=== PATIENT | female | born 1980 | race Hispanic/Latino ===

== ENCOUNTER 2018-02-07 05:40 | Emergency (ER) | payer MEDICAID ==
[2018-02-07] MEDS ORDERED: SODIUM CHLORIDE 0.9% 1000ML 1,000 ML IV ONE (06:01)
[2018-02-07] MEDS ORDERED: ONDANSETRON HCL 4 MG/2 ML VIAL ONE (06:14)
== END 2018-02-07 07:22 | disposition home or self-care (01) ==
LOC: EDH 05:40
DX: K52.9 Noninfective gastroenteritis and colitis, unspecified (principal); E11.9 Type 2 diabetes mellitus without complications; Z98.51 Tubal ligation status
CPT/HCPCS: 82948; 96361; 96374; 99284; J2405; J7030

== ENCOUNTER → 2018-06-12 | Outpatient (CLI) | payer MEDICAID | END | disposition home or self-care (01) | LOC: OIH 15:40 | PROVIDERS: ATTEND Family Medicine | DX: Z01.818 Encounter for other preprocedural examination (principal); E11.9 Type 2 diabetes mellitus without complications | CPT/HCPCS: 71046 ==

== ENCOUNTER 2019-01-16 01:01 | Emergency (ER) | payer MEDICAID ==
[2019-01-16] MEDS ORDERED: METOCLOPRAMIDE 10 MG/2 ML VIAL ONE (01:41)
[2019-01-16] MEDS ORDERED: DiphenhydrAMINE HCL 50 MG/ML VIAL ONE (01:41)
[2019-01-16] MEDS ORDERED: SODIUM CHLORIDE 0.9% 1000ML 1,000 ML IV ONE ×2 (01:42→03:20)
[2019-01-16 01:45] LABS: BASOPHILS % (AUTO) 0.6 % (0.0-5.0); EOSINOPHILS % (AUTO) 0.3 % (0.0-8.0); HEMATOCRIT 41.3 % (36-48); LYMPHOCYTES % (AUTO) 14.4 % (21.0-51.0); MEAN CORPUSCULAR HEMOGLOBIN 25.4 pg (27.0-33.0); MEAN CORPUSCULAR HGB CONC 32.7 g/dL (32.0-36.0); MEAN CORPUSCULAR VOLUME 77.5 fL (79-99); MONOCYTES % (AUTO) 3.4 % (3.0-13.0); NEUTROPHILS % (AUTO) 81.3 % (40.0-77.0); PLATELET COUNT (AUTO) 313 K/uL (130-400); RED BLOOD CELL COUNT(AUTO) 5.33 MIL/uL (4.00-5.50); RED CELL DISTRIBUTION WIDTH 17.8 % (11.0-15.5); WHITE BLOOD COUNT (AUTO) 17.7 K/uL (4.8-10.8)
[2019-01-16 01:52] LABS: CREATININE 0.8 mg/dL (0.5-1.5); POTASSIUM 4.5 mmol/L (3.5-5.1)
[2019-01-16 01:57] LABS: ALBUMIN 3.7 g/dL (3.5-5.0); BILIRUBIN,TOTAL 0.1 mg/dL (0.2-1.0)
[2019-01-16] MEDS ORDERED: FAMOTIDINE/PF 20 MG/2 ML VIAL IV ONE (02:11)
[2019-01-16] MEDS ORDERED: ONDANSETRON HCL 4 MG/2 ML VIAL ONE (02:11)
[2019-01-16] MEDS ORDERED: KETOROLAC TROMETHAMINE 15MG/ML ONE (03:19)
== END 2019-01-16 05:16 | disposition home or self-care (01) ==
LOC: EDH 01:01
DX: K29.00 Acute gastritis without bleeding (principal); E86.9 Volume depletion, unspecified; E11.9 Type 2 diabetes mellitus without complications; I10 Essential (primary) hypertension; Z98.51 Tubal ligation status; Z90.710 Acquired absence of both cervix and uterus
CPT/HCPCS: 36415; 74177; 80053; 83690; 85025; 96361; 96374; 96375; 99285; J1200; J1885; J2405; J2765; J3490; J7030 ×2

== ENCOUNTER 2019-08-05 16:54 | Emergency (ER) | payer MEDICAID ==
[2019-08-05] MEDS ORDERED: IBUPROFEN 600 MG TABLET ONE (17:33)
== END 2019-08-05 18:26 | disposition home or self-care (01) ==
LOC: EDH 16:54
DX: S46.811A Strain of other muscles, fascia and tendons at shoulder and upper arm level, right arm, initial encounter (principal); M77.9 Enthesopathy, unspecified; I10 Essential (primary) hypertension; E11.9 Type 2 diabetes mellitus without complications; Z79.899 Other long term (current) drug therapy; X58.XXXA Exposure to other specified factors, initial encounter; Y93.89 Activity, other specified; Y92.89 Other specified places as the place of occurrence of the external cause; Y99.8 Other external cause status
CPT/HCPCS: 73030; 81025

== ENCOUNTER 2019-09-06 19:28 | Emergency (ER) | payer MEDICAID ==
[2019-09-06] MEDS ORDERED: ONDANSETRON HCL 4 MG/2 ML VIAL ONE (20:03)
[2019-09-06] MEDS ORDERED: MORPHINE SULFATE 4 MG/1ML SYG ONE (20:03)
[2019-09-06] MEDS ORDERED: SODIUM CHLORIDE 0.9% 1000ML 1,000 ML IV ONE (20:04)
[2019-09-06 20:07] LABS: APPEARANCE,URINE Clear (CLEAR); BILIRUBIN,URINE Negative (NEGATIVE); COLOR,URINE Yellow (YELLOW); GLUCOSE, URINE (UA) >=1000 mg/dL (NEGATIVE); KETONES,URINE 15 mg/dL (NEGATIVE); LEUKOCYTE ESTERASE ,URINE Negative (NEGATIVE); NITRATE,URINE Negative (NEGATIVE); OCCULT BLOOD,URINE Negative (NEGATIVE); PROTEIN,URINE Trace mg/dL (NEGATIVE); UROBILINOGEN,URINE 0.2 mg/dL (0.2-1.0)
[2019-09-06 20:07] LABS: BASOPHILS % (AUTO) 0.5 % (0.0-5.0); EOSINOPHILS % (AUTO) 0.3 % (0.0-8.0); HEMATOCRIT 42.6 % (36-48); LYMPHOCYTES % (AUTO) 30.9 % (21.0-51.0); MEAN CORPUSCULAR HEMOGLOBIN 28.5 pg (27.0-33.0); MEAN CORPUSCULAR VOLUME 83.7 fL (79-99); MONOCYTES % (AUTO) 5.7 % (3.0-13.0); NEUTROPHILS % (AUTO) 62.1 % (40.0-77.0); PLATELET COUNT (AUTO) 259 K/uL (130-400); RED BLOOD CELL COUNT(AUTO) 5.09 MIL/uL (4.00-5.50); RED CELL DISTRIBUTION WIDTH 13.4 % (11.0-15.5); WHITE BLOOD COUNT (AUTO) 11.5 K/uL (4.8-10.8)
[2019-09-06 20:18] LABS: CREATININE 0.7 mg/dL (0.5-1.5); POTASSIUM 3.3 mmol/L (3.5-5.1)
[2019-09-06 20:23] LABS: ALBUMIN 3.4 g/dL (3.5-5.0); BILIRUBIN,TOTAL 0.4 mg/dL (0.2-1.0); TOTAL PROTEIN, SERUM 7.9 g/dL (6.0-8.3)
[2019-09-06 20:25] LABS: BACTERIA,URINE None Seen /HPF (None Seen); RBC,URINE None Seen /HPF (0-1); SQUAMOUS EPITHELIAL CELL,UR None Seen /HPF (0-2); WBC,URINE 0-1 /HPF (0-1)
[2019-09-06] MEDS ORDERED: IOHEXOL-350 75 ML VIAL IV ONE (20:59)
[2019-09-06] MEDS ORDERED: KETOROLAC TROMETHAMINE 30MG/ML ONE (22:48)
== END 2019-09-07 01:24 | disposition home or self-care (01) ==
LOC: EDH 19:28
DX: N83.299 Other ovarian cyst, unspecified side (principal); E11.9 Type 2 diabetes mellitus without complications; I10 Essential (primary) hypertension; Z90.710 Acquired absence of both cervix and uterus
CPT/HCPCS: 36415; 74177; 76856; 80053; 81001; 85025; 96374; 96375; 99285; J1885; J2270; J2405; J7030; Q9967

== ENCOUNTER 2019-09-09 13:33 | Emergency (ER) | payer MEDICAID ==
[2019-09-09] MEDS ORDERED: IBUPROFEN 200 MG TAB ONE (14:00)
[2019-09-09] MEDS ORDERED: TETANUS/DIPHTHERIA TOXOID [ADULT] 0.5 ML VIAL IM ONE (14:00)
[2019-09-09] MEDS ORDERED: IBUPROFEN 400 MG TABLET ONE (14:00)
== END 2019-09-09 15:22 | disposition home or self-care (01) ==
LOC: EDH 13:33
DX: S91.351A Open bite, right foot, initial encounter (principal); E11.9 Type 2 diabetes mellitus without complications; I10 Essential (primary) hypertension; Z90.710 Acquired absence of both cervix and uterus; W54.0XXA Bitten by dog, initial encounter; Y93.89 Activity, other specified; Y92.096 Garden or yard of other non-institutional residence as the place of occurrence of the external cause; Y99.8 Other external cause status
CPT/HCPCS: 73630; 90471; 90714

== ENCOUNTER → 2019-09-14 | Outpatient (CLI) | payer MEDICAID | END | disposition home or self-care (01) | LOC: RAH 11:31 | PROVIDERS: ATTEND Family Medicine | DX: E04.1 Nontoxic single thyroid nodule (principal) | CPT/HCPCS: 76536 ==

== ENCOUNTER 2020-04-08 22:02 | Emergency (ER) | payer MEDICAID ==
[2020-04-08] MEDS ORDERED: SODIUM CHLORIDE 0.9% 500ML 500 ML IV ONE (22:03)
[2020-04-08] MEDS ORDERED: KETOROLAC TROMETHAMINE 30MG/ML ONE (22:41)
[2020-04-08 22:58] LABS: BASOPHILS % (AUTO) 0.4 % (0.0-5.0); EOSINOPHILS % (AUTO) 0.5 % (0.0-8.0); HEMATOCRIT 44.6 % (36-48); LYMPHOCYTES % (AUTO) 27.6 % (21.0-51.0); MEAN CORPUSCULAR HEMOGLOBIN 28.4 pg (27.0-33.0); MEAN CORPUSCULAR HGB CONC 33.2 g/dL (32.0-36.0); MEAN CORPUSCULAR VOLUME 85.4 fL (79-99); MONOCYTES % (AUTO) 5.5 % (3.0-13.0); NEUTROPHILS % (AUTO) 65.5 % (40.0-77.0); PLATELET COUNT (AUTO) 268 K/uL (130-400); RED BLOOD CELL COUNT(AUTO) 5.22 MIL/uL (4.00-5.50); WHITE BLOOD COUNT (AUTO) 12.3 K/uL (4.8-10.8)
[2020-04-08 23:01] LABS: APPEARANCE,URINE Clear (CLEAR); BILIRUBIN,URINE Negative (NEGATIVE); COLOR,URINE Yellow (YELLOW); GLUCOSE, URINE (UA) >=1000 mg/dL (NEGATIVE); KETONES,URINE Negative (NEGATIVE); LEUKOCYTE ESTERASE ,URINE Negative (NEGATIVE); NITRATE,URINE Negative (NEGATIVE); OCCULT BLOOD,URINE Negative (NEGATIVE); PROTEIN,URINE Negative (NEGATIVE)
[2020-04-08 23:08] LABS: CREATININE 0.8 mg/dL (0.5-1.5); POTASSIUM 3.3 mmol/L (3.5-5.1)
[2020-04-08 23:13] LABS: ALBUMIN 3.4 g/dL (3.5-5.0); BILIRUBIN,TOTAL 0.4 mg/dL (0.2-1.0); TOTAL PROTEIN, SERUM 7.6 g/dL (6.0-8.3)
[2020-04-08 23:17] LABS: BACTERIA,URINE None Seen /HPF (None Seen); RBC,URINE 0-1 /HPF (0-1); SQUAMOUS EPITHELIAL CELL,UR Few /HPF (0-2); WBC,URINE None Seen /HPF (0-1); YEAST,URINE BUDDING None Seen /HPF (None Seen)
[2020-04-08] MEDS ORDERED: POTASSIUM CHLORIDE 20 MEQ ERTAB PO ONE (23:52)
[2020-04-09] MEDS ORDERED: HYDROCODONE/ACETAMINOPHEN 5/325 MG TAB ONE (01:10)
== END 2020-04-09 02:19 | disposition home or self-care (01) ==
LOC: EDH 22:02
DX: N83.291 Other ovarian cyst, right side (principal); N83.292 Other ovarian cyst, left side; I10 Essential (primary) hypertension; E11.9 Type 2 diabetes mellitus without complications; Z90.710 Acquired absence of both cervix and uterus
CPT/HCPCS: 36415; 76830; 80053; 81001; 85025; 96361; 96374; 99284; J1885; J7040

== ENCOUNTER 2020-06-23 21:19 | Emergency (ER) | payer MEDICAID | END 2020-06-23 23:02 | disposition home or self-care (01) | LOC: EDH 21:19 | DX: S90.31XA Contusion of right foot, initial encounter (principal); E11.9 Type 2 diabetes mellitus without complications; I10 Essential (primary) hypertension; Z90.710 Acquired absence of both cervix and uterus; X50.9XXA Other and unspecified overexertion or strenuous movements or postures, initial encounter; Y93.89 Activity, other specified; Y92.89 Other specified places as the place of occurrence of the external cause; Y99.8 Other external cause status | CPT/HCPCS: 73630 ==

== ENCOUNTER 2021-01-06 08:30 | Emergency (ER) | payer MEDICAID | END 2021-01-06 10:16 | disposition home or self-care (01) | LOC: EDH 08:30 | DX: S60.221A Contusion of right hand, initial encounter (principal); E11.9 Type 2 diabetes mellitus without complications; I10 Essential (primary) hypertension; Z90.710 Acquired absence of both cervix and uterus; W22.8XXA Striking against or struck by other objects, initial encounter; Y93.89 Activity, other specified; Y92.89 Other specified places as the place of occurrence of the external cause; Y99.8 Other external cause status | CPT/HCPCS: 73110; 73130 ==

== ENCOUNTER 2024-03-19 15:23 | Emergency (ER) | payer MEDICAID ==
[~2024-03-19] VITALS: Ht 149.9 cm; Wt 75.7 kg
[2024-03-19] MEDS: ONDANSETRON 4MG INJ IVP ONE (15:58)
[2024-03-19] MEDS: acetaMINOPHEN 500 MG TABLET PO ONE (15:58)
[2024-03-19 16:00] LABS: BASOPHILS # (AUTO) 0.03 K/uL (0.00-0.20); BASOPHILS % (AUTO) 0.3 % (0.0-5.0); EOSINOPHILS # (AUTO) 0.05 K/uL (0.00-0.70); EOSINOPHILS % (AUTO) 0.6 % (0.0-8.0); HEMATOCRIT 44.1 % (36-48); IMMATURE GRANULOCYTE ABSOLUTE 0.05 K/uL (0-1); LYMPHOCYTES # (AUTO) 2.4 K/uL (1.0-4.8); LYMPHOCYTES % (AUTO) 26.8 % (21.0-51.0); MEAN CORPUSCULAR HEMOGLOBIN 30.1 pg (27.0-33.0); MEAN CORPUSCULAR HGB CONC 34.9 g/dL (32.0-36.0); MEAN CORPUSCULAR VOLUME 86.3 fL (79-99); MONOCYTES # (AUTO) 0.5 K/uL (0.1-1.0); MONOCYTES % (AUTO) 5.1 % (3.0-13.0); NEUTROPHILS # (AUTO) 6.1 K/uL (1.8-7.7); NEUTROPHILS % (AUTO) 66.6 % (40.0-77.0); PLATELET COUNT (AUTO) 273 K/uL (130-400); RED BLOOD CELL COUNT(AUTO) 5.11 MIL/uL (4.00-5.50); RED CELL DISTRIBUTION WIDTH 13.2 % (11.0-15.5); WHITE BLOOD COUNT (AUTO) 9.1 K/uL (4.8-10.8)
[2024-03-19 16:13] LABS: CREATININE 0.8 mg/dL (0.5-1.0); POTASSIUM 3.7 mmol/L (3.5-5.1)
[2024-03-19 16:18] LABS: ALBUMIN 3.6 g/dL (3.5-5.0); BILIRUBIN,TOTAL 0.3 mg/dL (0.2-1.0); TOTAL PROTEIN, SERUM 7.2 g/dL (6.0-8.3)
[2024-03-19 16:21] LABS: INR 0.95 (0.85-1.15); PROTHROMBIN TIME 10.3 SEC (9.6-11.6)
[2024-03-19 16:23] LABS: PARTIAL THROMBOPLASTIN TIME 25.9 SEC (26.3-35.5)
[2024-03-19 16:39] LABS: ADD UA MICROSCOPIC YES; APPEARANCE,URINE CLEAR (CLEAR); BILIRUBIN,URINE NEGATIVE (NEGATIVE); COLOR,URINE YELLOW (YELLOW); GLUCOSE, URINE (UA) >=1000 mg/dL (NEGATIVE); KETONES,URINE NEGATIVE (NEGATIVE); LEUKOCYTE ESTERASE ,URINE NEGATIVE Leu/uL (NEGATIVE); NITRATE,URINE NEGATIVE (NEGATIVE); OCCULT BLOOD,URINE NEGATIVE (NEGATIVE); PROTEIN,URINE NEGATIVE (NEGATIVE); RBC,URINE 0-1 /HPF (0-1); SQUAMOUS EPITHELIAL CELL,UR FEW /HPF (0-2); UROBILINOGEN,URINE 0.2 mg/dL (0.2-1.0); WBC,URINE 0-1 /HPF (0-1)
[2024-03-19] MEDS: 0.9%NACL 1000ML 1,000 ML IV ONE (17:27)
[2024-03-19] MEDS: KETOROLAC 30MG VIAL (30MG/ML) IVP ONE (17:28)
[2024-03-19] MEDS: mecliZINE HCL 25 MG TABLET PO ONE (17:28)
[2024-03-19] MEDS: Solu-medROL 125MG VIAL IVP ONE (17:28)
[2024-03-19] MEDS ORDERED: ONDA-243 PO (18:52)
[2024-03-19] MEDS ORDERED: MECL-302 PO (18:52)
[2024-03-19 19:36] VITALS: BP 130/78; PULSE 67; RESP 15; O2SAT 99
== END 2024-03-19 19:38 | disposition home or self-care (01) ==
LOC: EDH 15:23
DX: R42 Dizziness and giddiness (principal); F07.81 Postconcussional syndrome; E11.65 Type 2 diabetes mellitus with hyperglycemia; I10 Essential (primary) hypertension; Z79.899 Other long term (current) drug therapy; Z90.710 Acquired absence of both cervix and uterus
CPT/HCPCS: 99285; 96374; 70450; 96375; 96361; 80053; 85025; 85610; 85730; 81001; 36415; J7030; J2919; J2405; J1885

== ENCOUNTER 2024-08-05 21:11 | Observation (INO) | payer MEDICAID ==
[~2024-08-05] VITALS: Ht 149.9 cm; Wt 73.1 kg
[~2024-08-05 21:11] MED LIST: ATOR40TA71 PO; DAPA5TAB PO; INSU100V37 SQ; INSU3INS5 SQ; ISOS30TA92 PO; MECL-302 PO; NITR0.4T50 SL; ONDA-243 PO; PANT40TA PO; RANO500T2 PO
--- NOTE | 2024-08-05 21:31 | HMCIMG ---
CHEST 1VW REASON: CHEST PAIN COMPARISON: None. FINDINGS: Single view of the chest was obtained. Lungs are clear. Heart size is normal. There is no pulmonary vascular congestion. Mediastinum and bony thorax appear unremarkable. IMPRESSION: 1. Normal single view chest x-ray.
[2024-08-05 21:38] LABS: BASOPHILS # (AUTO) 0.03 K/uL (0.00-0.20); BASOPHILS % (AUTO) 0.4 % (0.0-5.0); EOSINOPHILS # (AUTO) 0.06 K/uL (0.00-0.70); EOSINOPHILS % (AUTO) 0.7 % (0.0-8.0); HEMATOCRIT 40.5 % (36-48); IMMATURE GRANULOCYTE ABSOLUTE 0.02 K/uL (0-1); LYMPHOCYTES # (AUTO) 3.1 K/uL (1.0-4.8); LYMPHOCYTES % (AUTO) 35.8 % (21.0-51.0); MEAN CORPUSCULAR HGB CONC 32.8 g/dL (32.0-36.0); MEAN CORPUSCULAR VOLUME 82.2 fL (79-99); MONOCYTES # (AUTO) 0.7 K/uL (0.1-1.0); MONOCYTES % (AUTO) 8.5 % (3.0-13.0); NEUTROPHILS # (AUTO) 4.6 K/uL (1.8-7.7); NEUTROPHILS % (AUTO) 54.4 % (40.0-77.0); PLATELET COUNT (AUTO) 274 K/uL (130-400); RED BLOOD CELL COUNT(AUTO) 4.93 MIL/uL (4.00-5.50); RED CELL DISTRIBUTION WIDTH 14.1 % (11.0-15.5); WHITE BLOOD COUNT (AUTO) 8.5 K/uL (4.8-10.8)
[2024-08-05 21:47] LABS: CREATININE 0.9 mg/dL (0.5-1.0); POTASSIUM 3.7 mmol/L (3.5-5.1)
[2024-08-05 21:49] LABS: INR <= 0.93 (0.85-1.15); PROTHROMBIN TIME 9.8 SEC (9.6-11.6)
[2024-08-05 21:50] LABS: PARTIAL THROMBOPLASTIN TIME 24.7 SEC (26.3-35.5)
[2024-08-05 21:58] LABS: B-TYPE NATRIURETIC PEPTIDE 11 pg/mL (0-100)
--- NOTE | 2024-08-05 21:58 | ERN ---
General Chief Complaint: Chest Pain Stated Complaint: CHEST PAIN Time Seen by MD: 21:19 History of Present Illness Initial Comments Mrs Arambula is a 43-year-old female with significant past medical history of CAD who comes in with a chief complaint of chest pain. Patient has recently received a catheterization where she states that she has 60% blockage of 1 coronary artery. Patient was not which artery this is. Patient was on a statin, isosorbide mononitrate, Farxiga and diabetes medicine. Patient reports the chest pain has been left-sided radiating down her left and right arm. Patient does have an elevated blood pressure. Patient was reports t hat she did take a nitro which did bring her chest pain slightly below an 8. She denies any other symptomatology Allergies: Coded Allergies: No Known Drug Allergies (Verified Allergy, 05/20/13) Home Meds Active Scripts Nitroglycerin (Nitroglycerin) 0.4 Mg Tab.subl, 0.4 MG SL AD PRN for CHEST PAIN, #30 TAB.SL 1 Refill Prov:AMBER SIMMONS 07/19/24 Ranolazine (RANEXA) 500 Mg Tab.er.12h, 500 MG PO BID, #60 TAB Prov:AMBER SIMMONS 07/19/24 Meclizine HCl (Meclizine HCl) 25 Mg Tablet, 25 MG PO TID for vertigo, #30 TAB 0 Refills Prov:BELL EPSTEIN NP 03/19/24 Ondansetron (Ondansetron Odt) 4 Mg Tab.rapdis, 4 MG PO Q6HPRN PRN for nausea, #16 TAB 0 Refills Prov:BELL EPSTEIN NP 03/19/24 Reported Medications Atorvastatin Calcium (Atorvastatin Calcium) 40 Mg Tablet, 1 TAB PO HS for 30 Days, #30 TAB 0 Refills 07/16/24 Pantoprazole Sodium (Protonix) 40 Mg Tablet.dr, 1 TAB PO DAILY for 30 Days, #30 TAB 0 Refills 07/16/24 Isosorbide Mononitrate (Isosorbide Mononitrate ER) 30 Mg Tab.er.24h, 1 TAB PO DAILY for 30 Days, #30 TAB 0 Refills 07/16/24 Dapagliflozin Propanediol (Farxiga) 5 Mg Tablet, 1 TAB PO DAILY for 30 Days, #30 TAB 0 Refills 07/16/24 Insulin Degludec (Tresiba) 100 Unit/Ml Vial, 30 UNITS SQ DAILY, VIAL 07/16/24 Insuln Asp Prt/Insulin Aspart (Novolog Mix 70-30 Flexpen Syrn) 100 Unit/Ml (70- 30) Insuln.pen, 45 UNITS SQ BID, SYRINGE 07/16/24 Past Medical History Past Medical History: Diabetes-Type I, Diabetes-Type II, Hypertension, Other Medical History Other: 60 % OF UNKNOWN ARTERY OCCLUSION Past Surgical History: Hysterectomy Family History Family History: Negative Social History Social History: Negative Female( History) History: Not Applicable ROS Dictation Constitutional: Negative for fever,chills, and weight loss Eyes: Negative for injury, pain,redness, and discharge ENT: Negative for injury,pain or swelling Cardiovascular: Positive for chest pain Respiratory: Negative for shortness of breath, cough, and wheezing, Abdomen/GI: Negative for abdominal pain, nausea, vomiting, diarrhea, and constipation Back: Negative for injury and pain : Negative for injury, bleeding and discharge MS/Extremity: Negative for injury and deformity Skin: Negative for rash, and discoloration Neuro: Negative for headache, weakness, numbness, tingling, and seizure Psych: Negative for suicide ideation, homicidal ideation, and hallucinations Physical Exam Physical Exam Dictation General: Patient who appears to be mildly in distress Head/Face: Normocephalic, atraumatic Eyes: PERRL, EOMI, vision at baseline ENT: oral cavity clear, Neck: Trachea midline, Cardiovascular: RRR, normal S1/S2, No MRGs, no JVD Respiratory: CTAB, no respiratory distress, No rales or wheezes Abdomen: Soft, non-tender, non-distended Skin: Warm, dry, normal turgor, no rash MS/Extremity: Pulses equal, no cyanosis Neuro: COAx4, GCS 15, strength 5/5 Results Laboratory and Microbiology Lab and Micro Result Laboratory Tests Test 08/05/24 21:30 08/05/24 21:54 White Blood Count 8.5 K/uL (4.8-10.8) Red Blood Count 4.93 MIL/uL (4.00-5.50) Hemoglobin 13.3 g/dL (12.0-16.0) Hematocrit 40.5 % (36-48) Mean Corpuscular Volume 82.2 fL (79-99) Mean Corpuscular Hemoglobin 27.0 pg (27.0-33.0) Mean Corpuscular Hemoglobin Concent 32.8 g/dL (32.0-36.0) Red Cell Distribution Width 14.1 % (11.0-15.5) Platelet Count 274 K/uL (130-400) Mean Platelet Volume 10.1 fL (7.5-10.5) Immature Granulocyte % (Auto) 0.2 % (0-1) Neutrophils (%) (Auto) 54.4 % (40.0-77.0) Lymphocytes (%) (Auto) 35.8 % (21.0-51.0) Monocytes (%) (Auto) 8.5 % (3.0-13.0) Eosinophils (%) (Auto) 0.7 % (0.0-8.0) Basophils (%) (Auto) 0.4 % (0.0-5.0) Neutrophils # (Auto) 4.6 K/uL (1.8-7.7) Lymphocytes # (Auto) 3.1 K/uL (1.0-4.8) Monocytes # (Auto) 0.7 K/uL (0.1-1.0) Eosinophils # (Auto) 0.06 K/uL (0.00-0.70) Basophils # (Auto) 0.03 K/uL (0.00-0.20) Absolute Immature Granulocyte (auto 0.02 K/uL (0-1) Nucleated Red Blood Cells 0.0 % (0.0-0.19) Prothrombin Time 9.8 SEC (9.6-11.6) Prothromb Time International Ratio <= 0.93 (0.85-1.15) Activated Partial Thromboplast Time 24.7 SEC (26.3-35.5) L Sodium Level 142 mmol/L (136-145) Potassium Level 3.7 mmol/L (3.5-5.1) Chloride Level 107 mmol/L (101-111) Carbon Dioxide Level 27 mmol/L (21-32) Blood Urea Nitrogen 12 mg/dL (7-18) Creatinine 0.9 mg/dL (0.5-1.0) Glomerular Filtration Rate Calc 81 mL/min (>90) Random Glucose 137 mg/dL (70-105) H Total Calcium 8.8 mg/dL (8.5-10.1) Magnesium Level 2.00 mg/dL (1.80-2.40) Total Creatine Kinase 77 U/L (21-232) # Troponin I High Sensitivity < 4 ng/L (4-50) L B-Type Natriuretic Peptide 11 pg/mL (0-100) Troponin I < 0.05 ng/mL (0.00-0.05) MDM Patient will be admitted for chest pain. MDM: Differential diagnosis: Chest pain Rationale: Tests considered and ordered secondary to shared decision making include: labs, ECG and radiology Previous outside records reviewed: Old ER visits. Risk of complication and/or morbidity or mortality of patient management: None Medications-Per medication reconciliation Need for hospitalization: Patient does meet criteria for hospitalization. Need for emergency major/minor surgery: No There are no social concerns with this patient. Prescription drug management Prescriptions will include symptomatic care Patient's prior external medical records from other ER visits were reviewed by me as indicated. Prior testing and results from previous visits were reviewed. Prior tests were taken into account with medical decision making and resource utilization, independent historian/historians were used to obtain complete medical history. I independently interpreted the test that were performed, results were reviewed by me and considered findings on radiology if ordered. Medical management and examination interpretation discussions were had by al wi other qualified healthcare professionals as indicated for the patient's care. ED Course Orders Procedure Category Date Status Time Vital Signs Per CPOE 08/05/24 Transmitted Routine 21:12 B-Type Natriuretic LAB 08/05/24 Complete Peptide 21:12 Chest 1vw RAD 08/05/24 Resulted 21:12 12 Lead Ekg Tracing- EKG 08/05/24 Logged Technical 21:12 Oxygen By Nc/Pulse Ox CPOE 08/05/24 Transmitted 21:12 Maintain Iv CPOE 08/05/24 Transmitted 21:12 Iv Insertion CPOE 08/05/24 Transmitted 21:12 Cardiac Monitoring CPOE 08/05/24 Transmitted 21:12 Pulse Oximetry With CPOE 08/05/24 Transmitted Vs And Prn 21:12 Cbc With Differential LAB 08/05/24 Complete 21:12 Activity: Br W/Brp CPOE 08/05/24 Transmitted With Assist 21:12 Creatine Kinase, Total LAB 08/05/24 Complete 21:12 Urinalysis Profile LAB 08/05/24 Logged 21:12 Troponin Poc Order LAB 08/05/24 Complete Only 21:12 Bedside Troponin-I LAB.ER 08/05/24 In Process (Poc) 21:12 Basic Metabolic Panel LAB 08/05/24 Complete 21:12 Troponin I High LAB 08/05/24 Complete Sensitivity 21:13 Pt And Ptt LAB 08/05/24 Complete 21:13 Magnesium LAB 08/05/24 Complete 21:13 Morphine 4mg Syg PHA 08/05/24 Complete (Morphine 4mg Syg) 21:30 Current Medications Medications (Trade) Dose Ordered Sig/[place] Route PRN Reason Start Time Stop Time Status Last Admin Dose Admin Morphine Sulfate (morPHINE 4MG SYG) 4 mg ONCE ONCE IVP 08/05/24 21:30 08/05/24 21:31 DC 08/05/24 22:06 Vital Signs Date Time Temp Pulse Resp B/P (MAP) Pulse Ox O2 Delivery O2 Flow Rate FiO2 08/05/24 22:07 98.4 96 20 146/89 98 Room Air* 0 21 08/05/24 21:31 98.4 94 20 174/110 98 Room Air* 0 21 08/05/24 21:12 99.0 97 16 134/78 98 Room Air DX & DISP Disposition: Inpatient Departure Impression: Primary Impression: Coronary artery disease Condition: Stable Referrals: JAYME GOMES MD (PCP) ASHWINI ELIZABETH MD Aug 05, 2024 21:58
[2024-08-05] MEDS: morPHINE 4 MG SYG IVP ONE (22:06)
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
[2024-08-05] MEDS ORDERED: cloNIDine HCL 0.1 MG TABLET PO PRN (23:30)
[2024-08-05] MEDS ORDERED: PoTASSium chloRIDE 20MEQ ER 20 MEQ ERTAB PO PRN (23:30)
[2024-08-05] MEDS ORDERED: LAbetaLOL 20MG SYG IV PRN (23:30)
[2024-08-05] MEDS ORDERED: PoTASSium chl 10% ELIXIR 20MEQ 20 MEQ/15 ML UDCUP PO PRN (23:30)
[2024-08-05] MEDS ORDERED: MAGNESIUM 2GM PREMIX 50ML 50 ML IV PRN (23:30)
[2024-08-05] MEDS ORDERED: PoTASSium chloRIDE 10MEQ/100ML 100 ML IV PRN (23:30)
[2024-08-05] MEDS ORDERED: GLUCAGON 1MG KIT 1 MG ML IM PRN (23:30)
[2024-08-05] MEDS ORDERED: hydrALAZine 20MG/ML VIAL IV PRN (23:30)
[2024-08-05] MEDS ORDERED: IpraTROPium/alBUTERol SULFATE 3 ML SOLUTION IH PRN (23:30)
[2024-08-05] MEDS ORDERED: DEXTROSE 50%-WATER 50 ML DISP.SYRIN IV PRN (23:30)
[2024-08-06] VITALS (10 sets, daily range): BP systolic 125–148; BP diastolic 51–94; PULSE 71–92; RESP 16–18; TEMP 98–98.6; O2SAT 98–99
[2024-08-06 00:22] LABS: APPEARANCE,URINE CLEAR (CLEAR); BILIRUBIN,URINE NEGATIVE (NEGATIVE); COLOR,URINE LIGHT-YELLOW (YELLOW); GLUCOSE, URINE (UA) >=1000 mg/dL (NEGATIVE); KETONES,URINE NEGATIVE (NEGATIVE); LEUKOCYTE ESTERASE ,URINE NEGATIVE Leu/uL (NEGATIVE); NITRATE,URINE NEGATIVE (NEGATIVE); OCCULT BLOOD,URINE SMALL (NEGATIVE); PROTEIN,URINE NEGATIVE (NEGATIVE); UROBILINOGEN,URINE 0.2 mg/dL (0.2-1.0)
[2024-08-06 00:24] LABS: ADD UA MICROSCOPIC YES
[2024-08-06 00:27] LABS: SQUAMOUS EPITHELIAL CELL,UR MOD /HPF (0-2); WBC,URINE 0-1 /HPF (0-1)
[2024-08-06 00:28] LABS: AMPHET/METH SCREEN,URINE NEGATIVE (NEGATIVE); BARBITURATE SCREEN, URINE NEGATIVE (NEGATIVE); BENZODIAZEPINES SCREEN,URINE NEGATIVE (NEGATIVE); CANNABINOID SCREEN,URINE NEGATIVE (NEGATIVE); COCAINE SCREEN,URINE NEGATIVE (NEGATIVE); OPIATE SCREEN,URINE POSITIVE (NEGATIVE); PHENCYCLIDINE SCREEN,URINE NEGATIVE (NEGATIVE)
[2024-08-06] MEDS ORDERED: NITROGLYCERIN 30 GM TUBE TD ONE (01:00)
[2024-08-06] MEDS ORDERED: PHARMACY COMMUNICATION MISC STA (01:23)
[2024-08-06] MEDS ORDERED: COMPOUND PO MISCELLANEOUS 1 EACH MISC MISC PRN (01:30)
[2024-08-06] MEDS: NITROGLYCERIN 1GM OINT 1 INCH/1GM TD ONE (01:35)
[2024-08-06] MEDS: ASPIRIN 81MG CHEW TAB PO ONE (01:36)
[2024-08-06] MEDS: atorVAStatin 40 MG TABLET PO SCH (01:36)
--- NOTE | 2024-08-06 01:38 | NUR ---
PATIENT WILL HAVE HER HOME MEDS LISANDRA IN THE AM
[2024-08-06] MEDS ORDERED: IOHEXOL 350 MG/ML 100ML INFUS..BTL IV ONE (01:40)
--- NOTE | 2024-08-06 02:02 | HMCIMG ---
CT CHEST PE PROTOCOL WWO CONT HISTORY: Pulmonary embolism COMPARISON: 07/16/2024 TECHNIQUE: CT angiography of the chest was performed. The study was performed using angiographic technique with maximum intensity projection reconstruction images. Patient was given 100 cc of Omnipaque through intravenous route. FINDINGS: No CT evidence of filling defect is seen to suggest pulmonary embolus. No CT evidence of aortic dissection is seen. No evidence of parenchymal disease is seen. No CT evidence of pleural effusion or pericardial effusion is seen. The heart is enlarged. Coronary arterial calcifications are seen. No evidence of adrenal mass is seen. Degenerative changes of the spine are noted. Liver is enlarged with fatty changes measuring 16 cm. IMPRESSION: 1. No CT evidence of acute pulmonary embolus is seen. CT was performed with one or more following dose reduction techniques: automated exposure control, adjustment of the mA and kv according to patient's size, or use of a iterative reconstruction technique.
[2024-08-06] MEDS: LIDO 2% VISC 30ML+MAG/AL/SIMETH 30ML+DICYCLOMINE 20MG 10ML PO ONE (02:29)
[2024-08-06] MEDS: morPHINE 2 MG SYG IVP PRN (02:32)
[2024-08-06] MEDS ORDERED: DILT-36 PO (02:40)
[2024-08-06] MEDS ORDERED: ASPI-1197 PO (02:44)
[2024-08-06 05:00] LABS: BASOPHILS # (AUTO) 0.04 K/uL (0.00-0.20); BASOPHILS % (AUTO) 0.5 % (0.0-5.0); EOSINOPHILS # (AUTO) 0.09 K/uL (0.00-0.70); EOSINOPHILS % (AUTO) 1.1 % (0.0-8.0); IMMATURE GRANULOCYTE ABSOLUTE 0.03 K/uL (0-1); LYMPHOCYTES # (AUTO) 3.6 K/uL (1.0-4.8); LYMPHOCYTES % (AUTO) 42.8 % (21.0-51.0); MEAN CORPUSCULAR HEMOGLOBIN 26.7 pg (27.0-33.0); MEAN CORPUSCULAR HGB CONC 32.2 g/dL (32.0-36.0); MEAN CORPUSCULAR VOLUME 83.1 fL (79-99); MONOCYTES # (AUTO) 0.5 K/uL (0.1-1.0); MONOCYTES % (AUTO) 6.4 % (3.0-13.0); NEUTROPHILS # (AUTO) 4.1 K/uL (1.8-7.7); NEUTROPHILS % (AUTO) 48.8 % (40.0-77.0); PLATELET COUNT (AUTO) 276 K/uL (130-400); RED BLOOD CELL COUNT(AUTO) 4.45 MIL/uL (4.00-5.50); RED CELL DISTRIBUTION WIDTH 14.2 % (11.0-15.5); WHITE BLOOD COUNT (AUTO) 8.4 K/uL (4.8-10.8)
[2024-08-06 05:20] LABS: CARBON DIOXIDE 29 mmol/L (21-32); CHLORIDE 106 mmol/L (101-111); CREATINE KINASE, TOTAL 59 U/L (21-232); CREATININE 0.8 mg/dL (0.5-1.0); GLOMERULAR FILTR. RATE CALC 94 mL/min (>90); GLUCOSE,RANDOM 128 mg/dL (70-105); PHOSPHORUS 3.4 mg/dL (2.5-4.9); SODIUM SERUM 143 mmol/L (136-145); UREA NITROGEN, BLOOD 11 mg/dL (7-18)
[2024-08-06] MEDS: INSULIN humuLIN R 100 UNIT/ML 3ML SQ SCH (06:41)
[2024-08-06] MEDS: ondanSETRON 4MG INJ IVP PRN (07:20)
--- NOTE | 2024-08-06 07:31 | EKG ---
[facility] Test Date: 2024-08-05 Test Time: 21:13:18 Pat Name: ALLEN JIANG Department: [facility] Room: 313 1 Gender: F Hall Cleaner: [id number] : 1980 Requested By: ASHWINI ELIZABETH Order Number: [id number] Reading MD: Gold Garcia Measurements Intervals [place] Rate: 96 P: 19 TN: 113 QRS: 30 QRSD: 79 T: 18 QT: 375 QTc: 473 Interpretive Statements Sinus rhythm Anterior and inferior t wave inversions Electronically Signed On 08-06-2024 23:39:42 EXAMINING CHAIR ASSEMBLER by Gold Garcia Please click the below link to view image of tracing.
--- NOTE | 2024-08-06 07:31 | EKG ---
[facility] Test Date: 2024-08-06 Test Time: 04:09:56 Pat Name: ALLEN JIANG Department: [facility] Room: 313 1 Gender: F Classifier Operator: [id number] [phone] [id number] Requested By: BENJI QUINTANA Order Number: [id number] Reading MD: Gold Garcia Measurements Intervals [place] Rate: 79 P: 10 WA: 132 QRS: 35 QRSD: 68 T: 23 QT: 410 QTc: 470 Interpretive Statements Normal sinus rhythm inferior and anterior st and t wave changes Electronically Signed On 08-06-2024 23:40:30 STRICKLER ATTENDANT by Gold Garcia Please click the below link to view image of tracing.
[2024-08-06] MEDS ORDERED: PoTASSium chloRIDE 10MEQ SR 10 MEQ/TAB TAB.SR.24H PO PRN (08:30)
[2024-08-06] MEDS: PANTOPrazole 40 MG TAB DR PO SCH (08:37)
[2024-08-06 10:41] LABS: CREATINE KINASE, TOTAL 58 U/L (21-232)
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
[2024-08-06 15:23] LABS: ABG BASE EXCESS -0.9 mmol/L (-2.0-3.0); ABG OXYGEN SATURATION 95.6 % (94.0-98.0); ABG PCO2 36 mmHg (32-45); ABG PH 7.423 (7.350-7.450); DEVICE COMMENT NORAH RN RR; PO2, ARTERIAL BG 76.3 mmHg (83.0-108.0); VENT MODE, BG RA (ROOM AIR)
--- NOTE | 2024-08-06 23:44 | CONS ---
CONSULT NOTE: CARDIOLOGY Reason for consult: Chest Pain HPI/story at presentation: 43-year-old female with a past medical history significant for diabetes, hypertension, CAD with recent cardiac catheterization on 07/09/2024 the patient presented to the emergency department due to experiencing chest pain. Patient reports she was relaxing at home and was experiencing intermittent squeezing to the left-sided her chest. Duration of possibly 1-2 minutes. Patient also reports she was checking her blood pressure during each episode and blood pressure seemed to increase. Patient was recently discharged from [facility] and was found to have 60% long moderate lesion of the LAD. Patient was discharged on aspirin 81, high intensity statin, isosorbide mono 30 daily, pantoprazole 40 daily. Repots she has been compliant with medications. Past medical history: See below Allergies, Meds See chart Review of Systems Constitutional: Negative for chills and fever. HENT: Negative for ear discharge and ear pain. Eyes: Negative for photophobia and discharge. Respiratory: Negative for cough, sputum production and stridor. Cardiovascular: + chest pain, - palpitations. Gastrointestinal: Negative for diarrhea and vomiting. Genitourinary: Negative for frequency. Musculoskeletal: Negative for myalgias. Skin: Negative for rash. Neurological: Negative for focal weakness and seizures. Endo/Heme/Allergies: Negative for polydipsia. Psychiatric/Behavioral: Negative for hallucinations. Vitals see chart PHYSICAL EXAMINATION GENERAL: The patient is alert and oriented*3 HEENT: Nonicteric sclerae, non traumatic HEART: Regular rate and rhythm with no murmurs LUNGS: Clear to auscultation bilaterally ABDOMEN: No acute issues, non tender GENITAL, RECTAL: deferred SKIN: No rash NEUROLOGIC: NFND EXTREMITIES: No edema ASSESSMENT CHEST PAIN Intermittent squeezing to left chest area 1-2 minutes in duration Normal EF on echocardiogram, 06/2024 Abnormal CTA with evidence of severe disease of the LAD, 06/2024 Long moderate lesion of the LAD 60% PALPITATIONS Reports history of palpitations/tachycardia Currently on oral metoprolol DIABETES, HYPERTENSION, OBESITY, SLEEP APNEA CORE MEASURES Pending OTHER MEDICAL PROBLEMS reviwed PLAN 08/06/2024 No active cardiac complaints, chest pain is improved compared to yesterday, possible significant acid reflux as patient had taken nitroglycerin and then went to bed and woke up with worsening pain. Possible lax distal esophageal sphincter as potential etiology. Consider GI cocktail. No cardiac testing planned at this time given extensive workup recently. ATTESTATION I was involved substantially in the care of this patient Number and complexity of problems addressed 2 or more stable chronic illnesses Amount and or complexity of data Review of prior external note(s) from each unique source - Number 1 Ordering of each unique test - Number 0 Review of the result(s) of each unique test - Number 2 Assessment requiring an independent historian(s) No Independent interpretation of test performed by another MD/QHCP/appropriate source (not separately reported) No Discussion of management or test interpretation with external MD/QHCP/appropriate source (not separately reported) No Risk status (cardiac, billing related) Moderate ESTEFANY MILLAN MD Aug 06, 2024 23:44
[2024-08-07 03:45] VITALS: BP 129/86; PULSE 68; RESP 17; TEMP 98.3
[2024-08-07 07:58] VITALS: BP 128/82; PULSE 84; RESP 16; TEMP 98.7
[2024-08-07 08:00] VITALS: O2SAT 93
[2024-08-07 08:30] VITALS: PULSE 73; RESP 18; O2SAT 98
[2024-08-07] MEDS: dilTIAZem 120MG SR CAP PO SCH (08:42)
[2024-08-07] MEDS: ASPIRIN 81MG CHEW TAB PO SCH (08:42)
[2024-08-07] MEDS: ISOSORBIDE MONO 30MG SR TAB PO SCH (08:43)
[2024-08-07] MEDS: acetaMINOPHEN 325 MG TAB PO PRN (08:43)
[2024-08-07] MEDS: DAPAGLIFLOZIN PROPANEDIOL PO SCH (08:44)
[2024-08-07] MEDS: LIDOCAINE 4% ADH..PATCH TP SCH (11:44)
[2024-08-07 12:12] VITALS: BP 110/63; PULSE 77; RESP 16; TEMP 98.8
[2024-08-07] MEDS: LACTULOSE 20 GM/30 ML UDCUP PO PRN (12:51)
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
[2024-08-07 16:35] VITALS: BP 135/55; PULSE 74; RESP 19; TEMP 98.3
--- NOTE | 2024-08-07 17:30 | NUR ---
PATIENT DISCHARGED HOME ID BAND,IV AND TELE WILLY REMOVED. DISCHARGE INSTRUCTIONS EXPLAINED AND GIVEN TO PATIENT. PATIENT VERBALIZED UNDERSTANDING. BELONGINGS PACKED AND TAKEN BY PATIENT. WHEELED DOWN TO PRIVATE CAR.
== END 2024-08-07 17:30 | disposition home or self-care (01) ==
LOC: EDH 21:11 → EDHIP 21:12 → 3CH 08-06 01:54
PROVIDERS: ADMIT Internal Medicine Critical Care Medicine; ATTEND Internal Medicine Critical Care Medicine
DX: R07.89 Other chest pain (principal); I10 Essential (primary) hypertension; I25.10 Atherosclerotic heart disease of native coronary artery without angina pectoris; E11.9 Type 2 diabetes mellitus without complications; E78.5 Hyperlipidemia, unspecified; G47.30 Sleep apnea, unspecified; E66.9 Obesity, unspecified; Z90.710 Acquired absence of both cervix and uterus; Z79.4 Long term (current) use of insulin; Z91.410 Personal history of adult physical and sexual abuse; Z79.899 Other long term (current) drug therapy; Z68.32 Body mass index [BMI] 32.0-32.9, adult
CPT/HCPCS: 96374; 99285; 82550 ×3; 83735 ×3; 84484 ×5; 80048 ×2; 83880; 85025 ×2; 85378; 85610; 85730; 36415 ×3; 71045; 93005 ×2; 96376 ×2; 96372 ×2; 96375; 84100; 82803; 80305; 82948 ×7; 81001; 71270; 36600; G0378 ×42; J2270 ×6; J2405 ×2; Q9967

== ENCOUNTER 2024-09-20 10:27 | Emergency (ER) | payer MEDICAID ==
[~2024-09-20] VITALS: Ht 149.9 cm; Wt 74.8 kg
[~2024-09-20 10:27] MED LIST changes: +ASPI-1197 PO; +DILT-36 PO; -MECL-302 PO; -ONDA-243 PO; -RANO500T2 PO
[2024-09-20 10:39] VITALS: TEMP 97.9
--- NOTE | 2024-09-20 10:41 | ERN ---
ED Note History of Present Illness Stated Complaint: ABDOMINAL PAIN ON RIGHT SIDE Chief Complaint: Abdominal Pain Time Seen by MD: 10:32 Dictation: PATIENT IS A 43-YEAR-OLD FEMALE WITH A COMPLAINT OF RIGHT LOWER QUADRANT PAIN TENDERNESS AND CRAMPING ONSET TWO DAYS PRIOR TO ARRIVAL. SHE DENIES FEVER CHILLS NAUSEA VOMITING NO CHANGE IN URINATION AND NO FLANK PAIN. SHE STATES SHE HAS HAD A HISTORY OF A PRIOR TOTAL HYSTERECTOMY with bilateral oophorectomy Allergies: Coded Allergies: No Known Drug Allergies (Verified Allergy, 05/20/13) Home Meds Active Scripts Nitroglycerin (Nitroglycerin) 0.4 Mg Tab.subl, 0.4 MG SL AD PRN for CHEST PAIN, #30 TAB.SL 1 Refill Prov:AMBER SIMMONS 07/19/24 Reported Medications Aspirin (Aspirin) 81 Mg Tab.chew, 1 TAB PO DAILY 08/06/24 Diltiazem HCl (Diltiazem 24Hr ER) 120 Mg Cap.er.24h, 1 CAP PO DAILY 08/06/24 Atorvastatin Calcium (Atorvastatin Calcium) 40 Mg Tablet, 1 TAB PO HS for 30 Days, #30 TAB 0 Refills 07/16/24 Pantoprazole Sodium (Protonix) 40 Mg Tablet.dr, 1 TAB PO DAILY for 30 Days, #30 TAB 0 Refills 07/16/24 Isosorbide Mononitrate (Isosorbide Mononitrate ER) 30 Mg Tab.er.24h, 1 TAB PO DAILY for 30 Days, #30 TAB 0 Refills 07/16/24 Dapagliflozin Propanediol (Farxiga) 5 Mg Tablet, 2 TAB PO DAILY for 30 Days, #30 TAB 0 Refills 07/16/24 Insulin Degludec (Tresiba) 100 Unit/Ml Vial, 30 UNITS SQ DAILY, VIAL 07/16/24 Insuln Asp Prt/Insulin Aspart (Novolog Mix 70-30 Flexpen Syrn) 100 Unit/Ml (70- 30) Insuln.pen, 45 UNITS SQ BIDMEALS, SYRINGE 07/16/24 Past Medical History Past Medical History: Diabetes-Type I, Diabetes-Type II, Hypertension, Other Additional Past Medical Hx: 60 % OF UNKNOWN ARTERY OCCLUSION Surgical History: Hysterectomy PSYCH History: no pertinent psych hx Family History: Negative Social History: Negative History: Not Applicable RN Note Reviewed/Agreed w/PFSH: Yes Review of System Dictation CONSTITUTIONAL: NEGATIVE EXCEPT FOR HPI HEAD/FACE: NEGATIVE EXCEPT FOR HPI EENT: NEGATIVE EXCEPT FOR HPI RESPIRATORY: NEGATIVE EXCEPT FOR HPI GASTROINTESTINAL/ABDOMINAL: NEGATIVE EXCEPT FOR HPI RIGHT LOWER QUADRANT PAIN GENITOURINARY: NEGATIVE EXCEPT FOR HPI MUSCULOSKELETAL: NEGATIVE EXCEPT FOR HPI INTEGUMENTARY: NEGATIVE EXCEPT FOR HPI NEUROLOGICAL/PSYCH: NEGATIVE EXCEPT FOR HPI HEMATOLOGIC/LYMPHATIC: NEGATIVE EXCEPT FOR HPI ALL SYSTEMS NEGATIVE, EXCEPT NOTED ABOVE. 13 POINT REVIEW OF SYSTEMS ASSESSED AND ALL NEGATIVE EXCEPT FOR ABOVE. Initial Vital Sign VS Vital Signs Date Time Temp Pulse Resp B/P (MAP) Pulse Ox O2 Delivery O2 Flow Rate FiO2 09/20/24 10:39 97.9 85 18 130/82 97 Room Air 09/20/24 12:39 0 21 Physical Exam Dictation VITAL SIGNS REVIEWED GENERAL APPEARANCE: ALERT, ORIENTED X 3, MODERATE ACUTE DISTRESS, WELL DEVELOPED, NOURISHED. HEAD AND FACE: NON-TRAUMATIC. EYES: PERRL, PINK CONJUNCTIVAS, EYELID NO TRAUMA, ANTERIOR CHAMBER WITH ARCUS SENILIS. EARS: PINNAS INTACT AND NO SIGNS OF TRAUMA OR ERYTHEMA EAR CANALS CLEAR AND NO DISCHARGE TM NO ERYTHEMA NOSE: NO DISCHARGE, NO BLEEDING. OROPHARYNX: MOUTH NORMAL, TONGUE PINK, PHARYNX CLEAR,NO ERYTHEMA, TONSILS NO EXUDATES, NO ABSCESSES NOTED, MUCOUS MEMBRANE MOIST NECK: SUPPLE, NON-TENDER, NO THYROMEGALY, NO MASSES, NO JVD, NO BRUITS BREAST:DEFERRED CHEST:NO TENDERNESS, NO CREPITUS, NO PARADOXICAL MOVEMENT, NO RETRACTIONS LUNGS:CLEAR, WELL-VENTILATED, SYMMETRIC, NO RALES, NO WHEEZING, NO RHONCHI, NO STRIDOR, GOOD BREATH SOUNDS BILATERALLY HEART: REGULAR RATE, REGULAR RHYTHM, NO MURMUR, NO GALLOPS VASCULAR: NO PERIPHERAL EDEMA, ABDOMEN: SOFT, POSITIVE BOWEL SOUNDS, NONDISTENDED, NO GUARDING, MODERATE RIGHT LOWER QUADRANT PAIN TENDERNESS WITHOUT REBOUND RECTAL: DEFERRED GENITAL: DEFERRED NEUROLOGICAL: NORMAL SPEECH, MOTOR FUNCTION INTACT, SENSORY FUNCTION INTACT MUSCULOSKELETAL: NECK NONTENDER, FULL RANGE OF MOTION, BACK NONTENDER, FULL RANGE OF MOTION, EXTREMITIES: NONTENDER, FULL RANGE OF MOTION SKIN: COLOR PINK, DRY, NO TURGOR, NO RASH, NO LACERATIONS, NO ABRASIONS, NO CONTUSIONS. LYMPHATIC: DEFERRED Results (Laboratory/Radiology) Laboratory/Radiology Laboratory Tests Test 09/20/24 10:45 09/20/24 10:57 Urine Color LIGHT-YELLOW (YELLOW) Urine Appearance CLOUDY (CLEAR) H Urine pH 5.5 (5.0-8.0) Urine Specific [place] 1.029 (1.001-1.031) Urine Protein NEGATIVE mg/dL (NEGATIVE) Urine Glucose (UA) >=1000 mg/dL (NEGATIVE) H Urine Ketones NEGATIVE mg/dL (NEGATIVE) Urine Occult Blood NEGATIVE (NEGATIVE) Urine Nitrate NEGATIVE (NEGATIVE) Urine Bilirubin NEGATIVE mg/dL (NEGATIVE) Urine Urobilinogen 0.2 mg/dL (0.2-1.0) Urine Leukocyte Esterase NEGATIVE Romi/uL Urine RBC 0-1 /HPF (0-1) Urine WBC 2-5 /HPF (0-1) H Urine Squamous Epithelial Cells MANY /HPF (0-2) Urine Bacteria RARE /HPF (None Seen) White Blood Count 10.6 K/uL (4.8-10.8) Red Blood Count 5.37 MIL/uL (4.00-5.50) Hemoglobin 14.0 g/dL (12.0-16.0) Hematocrit 43.7 % (36-48) Mean Corpuscular Volume 81.4 fL (79-99) Mean Corpuscular Hemoglobin 26.1 pg (27.0-33.0) L Mean Corpuscular Hemoglobin Concent 32.0 g/dL (32.0-36.0) Red Cell Distribution Width 14.8 % (11.0-15.5) Platelet Count 298 K/uL (130-400) Mean Platelet Volume 10.6 fL (7.5-10.5) H Immature Granulocyte % (Auto) 0.5 % (0-1) Neutrophils (%) (Auto) 67.3 % (40.0-77.0) Lymphocytes (%) (Auto) 27.1 % (21.0-51.0) Monocytes (%) (Auto) 4.4 % (3.0-13.0) Eosinophils (%) (Auto) 0.4 % (0.0-8.0) Basophils (%) (Auto) 0.3 % (0.0-5.0) Neutrophils # (Auto) 7.2 K/uL (1.8-7.7) Lymphocytes # (Auto) 2.9 K/uL (1.0-4.8) Monocytes # (Auto) 0.5 K/uL (0.1-1.0) Eosinophils # (Auto) 0.04 K/uL (0.00-0.70) Basophils # (Auto) 0.03 K/uL (0.00-0.20) Absolute Immature Granulocyte (auto 0.05 K/uL (0-1) Nucleated Red Blood Cells 0.0 % (0.0-0.19) Sodium Level 141 mmol/L (136-145) Potassium Level 4.0 mmol/L (3.5-5.1) Chloride Level 105 mmol/L (101-111) Carbon Dioxide Level 29 mmol/L (21-32) Blood Urea Nitrogen 8 mg/dL (7-18) Creatinine 0.6 mg/dL (0.5-1.0) Glomerular Filtration Rate Calc 114 mL/min (>90) Random Glucose 127 mg/dL (70-105) H Total Calcium 9.4 mg/dL (8.5-10.1) Lipase 39 U/L (16-77) PATIENT: ALLEN JIANG MR#: [id number] : 1980 SEX: F AGE: 43 LOCATION: [facility] ORDER 1040 STATUS: REG REPORT#: [id number] SERVICE 1039 REASON: RIGHT LOWER QUADRANT PAIN TWO DAYS. HISTORY OF HYSTERECTOMY ORDERING PHYSICIAN: BELL EPSTEIN NP PROCEDURE: ABD PEL W - CT ABDOMEN/PELVIS W/CONTRAST CT ABDOMEN/PELVIS W/CONTRAST HISTORY: Right lower abdominal pain COMPARISON: 09/06/2019 TECHNIQUE: Multiple sequential axial images of the abdomen and pelvis were obtained from the dome of the diaphragm through symphysis pubis. Patient was not given contrast through intravenous route. Oral contrast was not given. FINDINGS: No pleural effusion is seen bilaterally. There is no evidence of parenchymal disease or pulmonary nodule of the visualized lower lungs. Degenerative changes of the thoracolumbar spine are present. The heart is not enlarged. The liver, spleen, adrenal glands and pancreas are unremarkable. There is no evidence of hydronephrosis bilaterally. No evidence of renal stone is seen. Fecal material is seen in the colon. There are normal size retroperitoneal and mesenteric lymph nodes. No ascites is seen. No CT evidence of acute appendicitis is seen. There is right ovarian cyst measuring 4.2 cm. Post hysterectomy changes are seen. Pelvic sidewalls are symmetric bilaterally. Bladder is well distended without wall thickening. IMPRESSION: 1. Post hysterectomy changes. Right ovarian cyst measuring 4.2 cm. No ascites. Labs Reviewed?: Yes ED Course ED Course Orders Procedure Category Date Status Time Cbc With Differential LAB 09/20/24 Complete 10:39 Urinalysis Profile LAB 09/20/24 Complete 10:39 Ct Abdomen/Pelvis CT 09/20/24 Resulted W/Contrast 10:39 0.9%Nacl 1000ml (Ns PHA 09/20/24 Complete 1000ml) 11:00 Morphine 2mg Syg PHA 09/20/24 Complete (Morphine 2mg Syg) 11:00 Ondansetron 4mg Inj PHA 09/20/24 Complete (Zofran 4mg Inj) 11:00 Lipase LAB 09/20/24 Complete 10:39 Basic Metabolic Panel LAB 09/20/24 Complete 10:39 Iohexol (Omnipaque) PHA 09/20/24 Complete 11:29 Iohexol (Omnipaque) PHA 09/20/24 Complete 11:38 Zosyn 3.375gm+Ns 50ml PHA 09/20/24 Complete (Zosyn 3.375gm+Ns 13:00 Morphine 4mg Syg PHA 09/20/24 Complete (Morphine 4mg Syg) 13:00 Ketorolac PHA 09/20/24 Verified Tromethamine 30mg/Ml 13:30 Current Medications Medications (Trade) Dose Ordered Sig/[place] Route PRN Reason Start Time Stop Time Status Last Admin Dose Admin Iohexol (Omnipaque) 75 ml STK-MED ONCE IV 09/20/24 11:38 09/20/24 11:39 DC Iohexol (Omnipaque) 35,000 mg STK-MED ONCE IV 09/20/24 11:29 09/20/24 11:30 DC Morphine Sulfate (morPHINE 2MG SYG) 2 mg ONCE ONCE IVP 09/20/24 11:00 09/20/24 11:01 DC 09/20/24 11:02 Morphine Sulfate (morPHINE 4MG SYG) 4 mg ONCE ONCE IVP 09/20/24 13:00 09/20/24 13:01 DC 09/20/24 12:46 Ondansetron HCl (zoFRAN 4MG INJ) 4 mg ONCE ONCE IVP 09/20/24 11:00 09/20/24 11:01 DC 09/20/24 11:03 Piperacillin Sod/ Tazobactam Sod (Zosyn 3.375gm+NS 50ml) 3.375 gm ONCE ONCE IVPB 09/20/24 13:00 09/20/24 13:01 DC 09/20/24 12:48 Sodium Chloride 1,000 ml @ 0 mls/hr ONCE ONCE IV 09/20/24 11:00 09/20/24 11:01 DC 09/20/24 11:03 Vital Signs Date Time Temp Pulse Resp B/P (MAP) Pulse Ox O2 Delivery O2 Flow Rate FiO2 09/20/24 12:39 84 16 111/55 99 Room Air* 0 21 09/20/24 10:39 97.9 85 18 130/82 97 Room Air 1325, patient made aware she has a right ovarian cyst and she has not had an oophorectomy. She states she has been having this pain off and on since her hysterectomy and by Dr. Dudley last year however has never follow back up with the him. Medical Decision Making MDM MDM: Differential diagnosis: Appendicitis/diverticulitis/hernia/UTI/pelvic pain. Rationale: Tests considered and ordered secondary to shared decision making include: Labs/CT Previous outside records reviewed: Old ER visits. Risk of complication and/or morbidity or mortality of patient management: None Medications-Per medication reconciliation Need for hospitalization: Patient does not meet criteria for hospitalization. No Need for emergency major/minor surgery: No There are no social concerns with this patient. 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 Prescriptions will include symptomatic care Patient's prior external medical records from other ER visits were reviewed by me as indicated. Prior testing and results from previous visits were reviewed. Prior tests were taken into account with medical decision making and resource utilization, independent historian/historians were used to obtain complete medical history. I independently interpreted the test that were performed, results were reviewed by me and considered findings on radiology if ordered. Medical management and examination interpretation discussions were had by me with other qualified healthcare professionals as indicated for the patient's care. DX & DISP Disposition: Discharge Departure Impression: Primary Impression: Right ovarian cyst Additional Impression: Uncontrolled diabetes mellitus Condition: Stable Scripts Ibuprofen (Ibuprofen 800 mg Tab) 800 Mg Tab 800 MG PO Q8H PRN for fever or pain, #30 TAB 0 Refills Prov: BELL EPSTEIN COMMUNITY RESOURCE CONSULTANT 09/20/24 Additional Instructions: Follow-up with primary care provider in 1 to 2 days. Take medications as directed here in the emergency room. Okay to continue home medications unless otherwise discussed during your visit in the emergency room today. Return to your nearest emergency room if symptoms worsen or if there is no improvement. Call 911 if you need immediate assistance. Take Tylenol or Motrin [id number] as needed and if no contraindications are present. Increase oral hydration. A wound culture or urine culture was ordered here in the emergency room department please follow-up with primary care provider and advise them to get repeat ports from our facility. If you had any Mychal wrap/splints that were applied here, please do not remove them until you see your primary care or specialty. Take ibuprofen as directed for your ovarian cyst, follow up with your guinea pig breeder doctor in the next 1-2 days Referrals: JAYME GOMES MD (PCP) Time of Disposition: 13:27 I have reviewed the case, and I agree with, Diagnosis and Plan BELL EPSTEIN NP Sep 20, 2024 10:41
[2024-09-20] MEDS: morPHINE 2 MG SYG IVP ONE (11:02)
[2024-09-20] MEDS: ondanSETRON 4MG INJ IVP ONE (11:03)
[2024-09-20] MEDS: 0.9%NACL 1000ML 1,000 ML IV ONE (11:03)
[2024-09-20 11:19] LABS: BASOPHILS # (AUTO) 0.03 K/uL (0.00-0.20); BASOPHILS % (AUTO) 0.3 % (0.0-5.0); EOSINOPHILS # (AUTO) 0.04 K/uL (0.00-0.70); EOSINOPHILS % (AUTO) 0.4 % (0.0-8.0); HEMATOCRIT 43.7 % (36-48); IMMATURE GRANULOCYTE ABSOLUTE 0.05 K/uL (0-1); LYMPHOCYTES # (AUTO) 2.9 K/uL (1.0-4.8); LYMPHOCYTES % (AUTO) 27.1 % (21.0-51.0); MEAN CORPUSCULAR HEMOGLOBIN 26.1 pg (27.0-33.0); MEAN CORPUSCULAR VOLUME 81.4 fL (79-99); MONOCYTES # (AUTO) 0.5 K/uL (0.1-1.0); MONOCYTES % (AUTO) 4.4 % (3.0-13.0); NEUTROPHILS # (AUTO) 7.2 K/uL (1.8-7.7); NEUTROPHILS % (AUTO) 67.3 % (40.0-77.0); PLATELET COUNT (AUTO) 298 K/uL (130-400); RED BLOOD CELL COUNT(AUTO) 5.37 MIL/uL (4.00-5.50); RED CELL DISTRIBUTION WIDTH 14.8 % (11.0-15.5); WHITE BLOOD COUNT (AUTO) 10.6 K/uL (4.8-10.8)
[2024-09-20 11:20] LABS: ADD UA MICROSCOPIC YES; APPEARANCE,URINE CLOUDY (CLEAR); BILIRUBIN,URINE NEGATIVE (NEGATIVE); COLOR,URINE LIGHT-YELLOW (YELLOW); GLUCOSE, URINE (UA) >=1000 mg/dL (NEGATIVE); KETONES,URINE NEGATIVE (NEGATIVE); LEUKOCYTE ESTERASE ,URINE NEGATIVE Leu/uL (NEGATIVE); NITRATE,URINE NEGATIVE (NEGATIVE); OCCULT BLOOD,URINE NEGATIVE (NEGATIVE); PH,URINE 5.5 (5.0-8.0); PROTEIN,URINE NEGATIVE (NEGATIVE); UROBILINOGEN,URINE 0.2 mg/dL (0.2-1.0)
[2024-09-20 11:20] LABS: CREATININE 0.6 mg/dL (0.5-1.0)
[2024-09-20 11:28] LABS: BACTERIA,URINE RARE /HPF (None Seen); RBC,URINE 0-1 /HPF (0-1); SQUAMOUS EPITHELIAL CELL,UR MANY /HPF (0-2)
[2024-09-20] MEDS ORDERED: IOHEXOL 350 MG/ML 100ML INFUS..BTL IV ONE (11:29)
[2024-09-20] MEDS ORDERED: IOHEXOL-350 75 ML VIAL IV ONE (11:38)
[2024-09-20 12:39] VITALS: BP 111/55; PULSE 84; RESP 16; O2SAT 99
--- NOTE | 2024-09-20 12:41 | NUR ---
STATES NO CAHNGE IN PAIN AFTER MORPHINE GIVEN, BELL PARIS AT BEDSIDE AND IS AWARE, STATES WILL PLACE NEW ORDER FOR PAIN
[2024-09-20] MEDS: morPHINE 4 MG SYG IVP ONE (12:46)
[2024-09-20] MEDS: ZOSYN 3.375GM +NS 50ML IVPB ONE (12:48)
--- NOTE | 2024-09-20 13:02 | NUR ---
NOTIFIED SUZETTE FROM RADIOLOGY FOR UPDATE ON CT RESULTS PER BELL TEXTILE COATING MACHINE OPERATOR, STATES WILL CALL RADIOLOGIST
--- NOTE | 2024-09-20 13:16 | HMCIMG ---
CT ABDOMEN/PELVIS W/CONTRAST HISTORY: Right lower abdominal pain COMPARISON: 09/06/2019 TECHNIQUE: Multiple sequential axial images of the abdomen and pelvis were obtained from the dome of the diaphragm through symphysis pubis. Patient was not given contrast through intravenous route. Oral contrast was not given. FINDINGS: No pleural effusion is seen bilaterally. There is no evidence of parenchymal disease or pulmonary nodule of the visualized lower lungs. Degenerative changes of the thoracolumbar spine are present. The heart is not enlarged. The liver, spleen, adrenal glands and pancreas are unremarkable. There is no evidence of hydronephrosis bilaterally. No evidence of renal stone is seen. Fecal material is seen in the colon. There are normal size retroperitoneal and mesenteric lymph nodes. No ascites is seen. No CT evidence of acute appendicitis is seen. There is right ovarian cyst measuring 4.2 cm. Post hysterectomy changes are seen. Pelvic sidewalls are symmetric bilaterally. Bladder is well distended without wall thickening. IMPRESSION: 1. Post hysterectomy changes. Right ovarian cyst measuring 4.[address] was performed with one or more following dose reduction techniques: automated exposure control, adjustment of the mA and kv according to patient's size, or use of a iterative reconstruction technique.
[2024-09-20] MEDS ORDERED: IBUP-2077 PO (13:28)
[2024-09-20] MEDS: ketOROlac 30MG VIAL (30MG/ML) IVP ONE (13:46)
== END 2024-09-20 14:03 | disposition home or self-care (01) ==
LOC: EEVIPCON 10:27 → EDH 10:27
DX: N83.201 Unspecified ovarian cyst, right side (principal); E11.65 Type 2 diabetes mellitus with hyperglycemia; I10 Essential (primary) hypertension; Z79.4 Long term (current) use of insulin; Z79.82 Long term (current) use of aspirin; Z79.84 Long term (current) use of oral hypoglycemic drugs; Z79.899 Other long term (current) drug therapy; Z90.710 Acquired absence of both cervix and uterus
CPT/HCPCS: 99285; 74177; 96365; 96375; 96361; 80048; 83690; 85025; 81001; 36415; 96376; J1885; J2270 ×2; J7030; J2405; J2543; Q9967

== ENCOUNTER 2025-01-10 22:15 | Emergency (ER) | payer MEDICAID ==
[~2025-01-10] VITALS: Ht 149.9 cm; Wt 74.8 kg
[~2025-01-10 22:15] MED LIST changes: +IBUP-2077 PO
--- NOTE | 2025-01-10 22:21 | EKG ---
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
[2025-01-10 22:50] LABS: BASOPHILS # (AUTO) 0.03 K/uL (0.00-0.20); BASOPHILS % (AUTO) 0.3 % (0.0-5.0); EOSINOPHILS # (AUTO) 0.06 K/uL (0.00-0.70); EOSINOPHILS % (AUTO) 0.5 % (0.0-8.0); HEMATOCRIT 41.2 % (36-48); IMMATURE GRANULOCYTE ABSOLUTE 0.05 K/uL (0-1); LYMPHOCYTES # (AUTO) 2.7 K/uL (1.0-4.8); LYMPHOCYTES % (AUTO) 24.6 % (21.0-51.0); MEAN CORPUSCULAR HEMOGLOBIN 25.9 pg (27.0-33.0); MEAN CORPUSCULAR VOLUME 80.9 fL (79-99); MONOCYTES # (AUTO) 0.7 K/uL (0.1-1.0); NEUTROPHILS # (AUTO) 7.5 K/uL (1.8-7.7); NEUTROPHILS % (AUTO) 68.1 % (40.0-77.0); PLATELET COUNT (AUTO) 306 K/uL (130-400); RED BLOOD CELL COUNT(AUTO) 5.09 MIL/uL (4.00-5.50); RED CELL DISTRIBUTION WIDTH 16.2 % (11.0-15.5)
[2025-01-10 22:59] LABS: CARBON DIOXIDE 29 mmol/L (21-32); CHLORIDE 98 mmol/L (101-111); GLOMERULAR FILTR. RATE CALC 71 mL/min (>90); GLUCOSE,RANDOM 345 mg/dL (70-105); POTASSIUM 4.4 mmol/L (3.5-5.1); SODIUM SERUM 137 mmol/L (136-145); UREA NITROGEN, BLOOD 16 mg/dL (7-18)
[2025-01-10 23:06] LABS: CREATINE KINASE, TOTAL 50 U/L (21-232)
[2025-01-10 23:24] LABS: B-TYPE NATRIURETIC PEPTIDE 5 pg/mL (0-100)
[2025-01-10] MEDS: ASPIRIN 325MG EC TAB PO ONE (23:43)
[2025-01-11 00:15] VITALS: BP 131/84; PULSE 82; RESP 19; TEMP 98.4; O2SAT 95
[2025-01-11] MEDS ORDERED: ketOROlac 30MG VIAL (30MG/ML) IM ONE (00:30)
--- NOTE | 2025-01-11 00:30 | NUR ---
PT ELOPED AT THIS TIME, NO SIGNS OF ACUTE DISTRESS NOTED AT TIME OF ELOPEMENT, MADE AWARE
--- NOTE | 2025-01-11 08:38 | HMCIMG ---
Exam Type: CHEST 1VW Clinical Information: CHEST PAIN Comparison: None Findings: The lungs are clear of infiltrates. The heart is normal in size. The bony and soft tissue structures of the chest are unremarkable. Impression: Clear lungs.
== END 2025-01-11 00:45 | disposition left against medical advice (07) ==
LOC: EDH 22:15
DX: R07.89 Other chest pain (principal); R06.02 Shortness of breath; R11.0 Nausea; Z53.21 Procedure and treatment not carried out due to patient leaving prior to being seen by health care provider
CPT/HCPCS: 36415; 71045; 80048; 82550; 83880; 84484; 85025; 93005

== ENCOUNTER 2025-02-27 12:32 | Emergency (ER) | payer MEDICAID ==
[~2025-02-27] VITALS: Ht 149.9 cm; Wt 74.8 kg
--- NOTE | 2025-02-27 12:56 | EKG ---
[facility] Test Date: 2025-02-27 Test Time: 12:37:25 Pat Name: ALLEN JIANG Department: [facility] Room: Gender: F Comb Fixer: [id number] : 1980 Requested By: SUSAN DAVIS Order Number: [id number] Reading MD: Jose Gordon Measurements Intervals [place] Rate: 89 P: 12 OK: 123 QRS: 38 QRSD: 79 T: 11 QT: 369 QTc: 450 Interpretive Statements Sinus rhythm Compared to ECG 01/10/2025 22:18:13 No significant changes Electronically Signed On 02-27-2025 15:38:25 CDT by Jose Gordon Please click the below link to view image of tracing.
[2025-02-27 13:00] LABS: IMMATURE GRANULOCYTE ABSOLUTE 0.07 K/uL (0-1); NUCLEATED RED BLOOD CELLS 0.0 % (0.0-0.19); PLATELET COUNT (AUTO) 324 K/uL (130-400); RED BLOOD CELL COUNT(AUTO) 5.67 MIL/uL (4.00-5.50); RED CELL DISTRIBUTION WIDTH 15.9 % (11.0-15.5); WHITE BLOOD COUNT (AUTO) 12.2 K/uL (4.8-10.8)
[2025-02-27 13:06] LABS: CREATININE 0.6 mg/dL (0.5-1.0); GLOMERULAR FILTR. RATE CALC 113.0 mL/min (>90); GLUCOSE,RANDOM 163.0 mg/dL (70-105); SODIUM SERUM 138.0 mmol/L (136-145); UREA NITROGEN, BLOOD 10.0 mg/dL (7-18)
[2025-02-27 13:11] LABS: CREATINE KINASE, TOTAL 53.0 U/L (21-232)
[2025-02-27 13:20] LABS: ADD UA MICROSCOPIC YES
[2025-02-27 13:21] LABS: APPEARANCE,URINE CLOUDY (CLEAR); GLUCOSE, URINE (UA) >=1000 mg/dL (NEGATIVE); LEUKOCYTE ESTERASE ,URINE 500 Leu/uL (NEGATIVE); NITRATE,URINE NEGATIVE (NEGATIVE); OCCULT BLOOD,URINE NEGATIVE (NEGATIVE); SQUAMOUS EPITHELIAL CELL,UR MOD /HPF (0-2)
--- NOTE | 2025-02-27 13:35 | ERN ---
General Chief Complaint: Chest Pain Stated Complaint: CP Time Seen by MD: 12:35 Source: patient History of Present Illness Initial Comments PATIENT IS A 44-YEAR-OLD FEMALE COMING IN COMPLAINING OF LEFT-SIDED CHEST PAIN. PATIENT STATES THAT THE CHEST PAIN STARTED EARLIER IN THE MORNING. PATIENT WAS CONCERNED BECAUSE SHE DOES HAS A HISTORY OF ARTERIOSCLEROSIS OF THE CORONARY AR TERIES. 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 Allergies: Coded Allergies: No Known Drug Allergies (Verified Allergy, 05/20/13) Home Meds Active Scripts Ibuprofen (Ibuprofen 800 mg Tab) 800 Mg Tab, 800 MG PO Q8H PRN for fever or pain, #30 TAB 0 Refills Prov:BELL EPSTEIN CONTINUOUS LINTER DRIER OPERATOR 09/20/24 Nitroglycerin (Nitroglycerin) 0.4 Mg Tab.subl, 0.4 MG SL AD PRN for CHEST PAIN, #30 TAB.SL 1 Refill Prov:AMBER SIMMONS 07/19/24 Reported Medications Aspirin (Aspirin) 81 Mg Tab.chew, 1 TAB PO DAILY 08/06/24 Diltiazem HCl (Diltiazem 24Hr ER) 120 Mg Cap.er.24h, 1 CAP PO DAILY 08/06/24 Atorvastatin Calcium (Atorvastatin Calcium) 40 Mg Tablet, 1 TAB PO HS for 30 Days, #30 TAB 0 Refills 07/16/24 Pantoprazole Sodium (Protonix) 40 Mg Tablet.dr, 1 TAB PO DAILY for 30 Days, #30 TAB 0 Refills 07/16/24 Isosorbide Mononitrate (Isosorbide Mononitrate ER) 30 Mg Tab.er.24h, 1 TAB PO DAILY for 30 Days, #30 TAB 0 Refills 07/16/24 Dapagliflozin Propanediol (Farxiga) 5 Mg Tablet, 2 TAB PO DAILY for 30 Days, #30 TAB 0 Refills 07/16/24 Insulin Degludec (Tresiba) 100 Unit/Ml Vial, 30 UNITS SQ DAILY, VIAL 07/16/24 Insuln Asp Prt/Insulin Aspart (Novolog Mix 70-30 Flexpen Syrn) 100 Unit/Ml (70- 30) Insuln.pen, 45 UNITS SQ BIDMEALS, SYRINGE 07/16/24 Past Medical History Past Medical History: Heart Disease Medical History Other: 60 % OF UNKNOWN ARTERY OCCLUSION Past Surgical History: Hysterectomy Family History Family History: Negative Social History Social History: Negative Female( History) History: Not Applicable ROS Dictation CONSTITUTIONAL: NO CHILLS, NO FEVER, NO WEAKNESS, NO DIAPHORESIS, NO MALAISE. HEAD/FACE: NO SIGNS OF TRAUMA. EENT: NO EYE PAIN, NO BLURRED VISION, NO TEARING, NO DOUBLE VISION, NO EAR PAIN, NO EAR DISCHARGE, NO NOSE PAIN, NO NASAL CONGESTION, NO THROAT PAIN, NO THROAT SWELLING, NO MOUTH PAIN. RESPIRATORY: NO COUGH, NO ORTHOPNEA, NO SOB, NO STRIDOR, NO WHEEZING. CARDIOVASCULAR: NO CHEST PAIN, NO EDEMA, NO PALPITATIONS, NO SYNCOPE. GASTROINTESTINAL/ABDOMINAL: NO ABDOMINAL PAIN, NO CONSTIPATION, NO DIARRHEA, NO NAUSEA, NO VOMITING. GENITOURINARY: NO ABNORMAL DISCHARGE, NO DYSURIA, NO FREQUENT URINATION, NO HEMATURIA. NO COMPLAINTS OF PAIN IN THE GENITALS. MUSCULOSKELETAL: NO BACK PAIN, NO GOUT, NO JOINT PAIN, NO JOINT SWELLING, NO MUSCLE PAIN, NO MUSCLE STIFFNESS, NO NECK PAIN. INTEGUMENTARY: NO CHANGE IN COLOR, NO CHANGE IN HAIR/NAILS, NO DRYNESS, NO LESION, NO LUMPS, NO RASH. NEUROLOGICAL/PSYCH: NO ANXIETY, NOT DEPRESSED, NO EMOTIONAL PROBLEM, NO HEADACHE, NO NUMBNESS, NO PRE-EXISTING DEFICIT, NO HISTORY OF SEIZURES, NO TREMORS, NO WEAKNESS. HEMATOLOGIC/LYMPHATIC: NOT ANEMIC, NO HISTORY OF BLOOD CLOTS, NO APPARENT BLEEDING, NO BRUISING, GLANDS NOT SWOLLEN. ALL SYSTEMS NEGATIVE, EXCEPT NOTED. Physical Exam Physical Exam Dictation VITAL SIGNS: REVIEWED. GENERAL APPEARANCE: ALERT, ORIENTED X3, NO ACUTE DISTRESS, OBESE. HEAD AND FACE: NON-TRAUMATIC. EYES: PERRL, PINK CONJUNCTIVAS, EYELID NO TRAUMA, ANTERIOR CHAMBER CLEAR. EARS: PINNAS INTACT AND NO SIGNS OF TRAUMA OR ERYTHEMA. EAR CANALS CLEAR AND NO DISCHARGE. TMS NO ERYTHEMA. NOSE: NO DISCHARGE, NO BLEEDING. OROPHARYNX: MOUTH NORMAL, TEETH NO CARIES, TONGUE PINK. PHARYNX CLEAR, NO APRIL THEMA. TONSILS NO EXUDATES, NO ABSCESSES NOTED. MUCOUS MEMBRANE MOIST. NECK: SUPPLE, NON-TENDER, NO THYROMEGALY, NO MASSES, NO JVD, NO BRUITS. BREAST: DEFERRED. CHEST: NO TENDERNESS, NO CREPITUS, NO PARADOXICAL MOVEMENT, NO RETRACTIONS. LUNGS: CLEAR, WELL-VENTILATED, SYMMETRIC, NO RALES, NO WHEEZING, NO RHONCHI, NO STRIDOR, GOOD BREATH SOUNDS BILATERALLY. HEART: REGULAR RATE, REGULAR RHYTHM, NO MURMUR, NO GALLOPS. VASCULAR: NO PERIPHERAL EDEMA. ABDOMEN: SOFT, POSITIVE BOWEL SOUNDS, NONDISTENDED, NO GUARDING, NONTENDER, NO REBOUND, NO MASSES NO HEPATOMEGALY, NO SPLENOMEGALY, NO ORTEZ'S SIGN, NO HERNIAS. RECTAL: DEFERRED. GENITAL: DEFERRED. NEUROLOGICAL: NORMAL SPEECH, GROSS MOTOR FUNCTION INTACT, GROSS SENSORY FUNCTION INTACT. MUSCULOSKELETAL: NECK NONTENDER, FULL RANGE OF MOTION, BACK NONTENDER, FULL RANGE OF MOTION. EXTREMITIES: NONTENDER, FULL RANGE OF MOTION. SKIN: COLOR PINK, DRY, NO TURGOR, NO RASH, NO LACERATIONS, NO ABRASIONS, NO CONTUSIONS. LYMPHATICS: DEFERRED. Results Laboratory and Microbiology Lab and Micro Result Laboratory Tests Test 02/27/25 12:53 02/27/25 12:56 02/27/25 13:38 White Blood Count 12.2 K/uL (4.8-10.8) H Red Blood Count 5.67 MIL/uL (4.00-5.50) H Hemoglobin 14.7 g/dL (12.0-16.0) Hematocrit 45.7 % (36-48) Mean Corpuscular Volume 80.6 fL (79-99) Mean Corpuscular Hemoglobin 25.9 pg (27.0-33.0) L Mean Corpuscular Hemoglobin Concent 32.2 g/dL (32.0-36.0) Red Cell Distribution Width 15.9 % (11.0-15.5) H Platelet Count 324 K/uL (130-400) Mean Platelet Volume 10.1 fL (7.5-10.5) Immature Granulocyte % (Auto) 0.6 % (0-1) Neutrophils (%) (Auto) 68.2 % (40.0-77.0) Lymphocytes (%) (Auto) 25.4 % (21.0-51.0) Monocytes (%) (Auto) 5.3 % (3.0-13.0) Eosinophils (%) (Auto) 0.2 % (0.0-8.0) Basophils (%) (Auto) 0.3 % (0.0-5.0) Neutrophils # (Auto) 8.3 K/uL (1.8-7.7) H Lymphocytes # (Auto) 3.1 K/uL (1.0-4.8) Monocytes # (Auto) 0.7 K/uL (0.1-1.0) Eosinophils # (Auto) 0.03 K/uL (0.00-0.70) Basophils # (Auto) 0.04 K/uL (0.00-0.20) Absolute Immature Granulocyte (auto 0.07 K/uL (0-1) Nucleated Red Blood Cells 0.0 % (0.0-0.19) Activated Partial Thromboplast Time 25.5 SEC (26.3-35.5) L Sodium Level 138 mmol/L (136-145) Potassium Level 4.2 mmol/L (3.5-5.1) Chloride Level 103 mmol/L (101-111) Carbon Dioxide Level 27 mmol/L (21-32) Blood Urea Nitrogen 10 mg/dL (7-18) Creatinine 0.6 mg/dL (0.5-1.0) Glomerular Filtration Rate Calc 113 mL/min (>90) Random Glucose 163 mg/dL (70-105) H Total Calcium 9.7 mg/dL (8.5-10.1) Magnesium Level 2.10 mg/dL (1.80-2.40) Total Creatine Kinase 53 U/L (21-232) Troponin I High Sensitivity < 4 ng/L (4-50) L < 4 ng/L (4-50) L Urine Color YELLOW (YELLOW) Urine Appearance CLOUDY (CLEAR) H Urine pH 6.0 (5.0-8.0) Urine Specific [place] 1.021 (1.001-1.031) Urine Protein NEGATIVE mg/dL (NEGATIVE) Urine Glucose (UA) >=1000 mg/dL (NEGATIVE) H Urine Ketones NEGATIVE mg/dL (NEGATIVE) Urine Occult Blood NEGATIVE (NEGATIVE) Urine Nitrate NEGATIVE (NEGATIVE) Urine Bilirubin NEGATIVE mg/dL (NEGATIVE) Urine Urobilinogen 0.2 mg/dL (0.2-1.0) Urine Leukocyte Esterase 500 Romi/uL (NEGATIVE) H Urine RBC 11-25 /HPF (0-1) H Urine WBC 2-5 /HPF (0-1) H Urine Squamous Epithelial Cells MOD /HPF (0-2) Urine Bacteria RARE /HPF (None Seen) Labs Reviewed?: Yes EKG/XRAY/US/CT/MRI EKG Comment 02/27/2025 TIME 12:37 P.M. VENTRICULAR RATE 89 SINUS RHYTHM NC [address] WAVE ELEVATION OR X-RAY Comment IMAGING REPORT Signed PATIENT: ALLEN JIANG MR#: [id number] : 1980 SEX: F AGE: 44 LOCATION: [facility] ORDER 1238 STATUS: REG ER REPORT#: [id number] SERVICE 1237 REASON: CP ORDERING PHYSICIAN: SUSAN DAVIS MD PROCEDURE: CXR1VW - CHEST 1VW EXAM: CR Chest, 1 View. CLINICAL HISTORY: CP COMPARISON: Radiograph dated January 10, 2025 FINDINGS: LUNGS: The lungs show no infiltrate or other acute finding. PLEURAL SPACES: No pleural effusion or pneumothorax. MEDIASTINUM: Cardiac size and mediastinal contours within normal limits. BONES: No acute osseous abnormality. IMPRESSION: No acute cardiopulmonary pathology is evident. /[place] DICTATED BY: WILL LUCIANO Jr., MD DATE: 02/27/251446 ELECTRONICALLY SIGNED BY: WILL LUCIANO Jr., MD DATE: 02/27/251446 MDM MDM: DIFFERENTIAL DIAGNOSIS: gerd, uti RATIONALE: TESTS CONSIDERED AND ORDERED SECONDARY TO SHARED DECISION MAKING INCLUDE: PREVIOUS OUTSIDE RECORDS REVIEWED: OLD ER VISITS. RISK OF COMPLICATION AND/OR MORBIDITY OR MORTALITY OF PATIENT MANAGEMENT: NONE MEDICATIONS-PER MEDICATION RECONCILIATION NEED FOR HOSPITALIZATION: PATIENT DOES NOT MEET CRITERIA FOR HOSPITALIZATION. NEED FOR EMERGENCY MAJOR/MINOR SURGERY: NO Patient is a 44-year-old female coming in complaining of chest discomfort. Labo ratory workup negative for acute findings. Patient was found to have a urinary tract infection. Patient received IV antibiotics her symptoms have improved significantly. I did advised her appropriate follow up with PCP and it resurfaces. ED Course Orders Procedure Category Date Status Time Cbc With Differential LAB 02/27/25 Complete 12:37 Chest 1vw RAD 02/27/25 Resulted 12:37 12 Lead Ekg Tracing- EKG 02/27/25 Complete Technical 12:37 Magnesium LAB 02/27/25 Complete 12:37 Creatine Kinase, Total LAB 02/27/25 Complete 12:37 Troponin I High LAB 02/27/25 Complete Sensitivity 12:37 Urinalysis Profile LAB 02/27/25 Complete 12:37 Partial LAB 02/27/25 Complete Thromboplastin Time 12:37 Basic Metabolic Panel LAB 02/27/25 Complete 12:37 Culture Urine CR 02/27/25 In Process 13:21 Troponin I High LAB 02/27/25 Complete Sensitivity 13:25 Ceftriaxone 1g Vial PHA 02/27/25 Complete (Rocephine 1g Inj) 13:30 Current Medications Medications (Trade) Dose Ordered Sig/[place] Route PRN Reason Start Time Stop Time Status Last Admin Dose Admin Ceftriaxone Sodium (ROCEphine 1G INJ) 1 gm ONCE ONCE IVPB 02/27/25 13:30 02/27/25 13:31 DC 02/27/25 14:29 Vital Signs Date Time Temp Pulse Resp B/P (MAP) Pulse Ox O2 Delivery O2 Flow Rate FiO2 02/27/25 14:34 98.2 84 18 114/74 98 Room Air* 0 21 02/27/25 12:35 98.2 92 18 144/87 97 Room Air 0 DX & DISP Disposition: Discharge Departure Impression: Primary Impression: UTI (urinary tract infection) Additional Impression: GERD (gastroesophageal reflux disease) Condition: Stable Scripts Pantoprazole Sodium (Protonix) 40 Mg Ectab 1 TAB PO DAILY for 30 Days, #30 TAB 0 Refills Prov: SUSAN DAVIS MD 02/27/25 Cephalexin Monohydrate (Keflex) 500 Mg Cap 1 CAP PO BID for 10 Days, #20 CAP 0 Refills Prov: SUSAN DAVIS MD 02/27/25 Additional Instructions: You have been reviewed in the emergency department at [facility] after presenting with chest pain. After considering your history, your risk factors, your EKG and your blood test troponins, have been found to be at very low risk less than (1 in 100) of having a major adverse cardiac event (like heart attack) in the near future. In the " low risk" group, the risks of doing further tests and treatment as the inpatient outweighs the benefits. In many patients in the low risk group for the test of any sort or unnecessary, however he should discuss this further with his general practitioner who will understand the medical and personal backgrounds better. Because we have never declared you" no risk" we would suggest. 1 returning for medical review if you have further episodes of chest pain/arm pain or other concerning symptoms like dizziness, collapse, palpitations or shortness of breath. 2. Following up with your local doctor who will consider the need for further testing and will also ensure that any modifiable risk factors you may have for heart disease are optimally managed. Patient will be discharged in stable condition at the moment discharge patient states , no chest pain Referrals: JAYME GOMES MD (PCP) Time of Disposition: 14:49 SUSAN DAVIS MD Feb 27, 2025 13:35
--- NOTE | 2025-02-27 13:48 | HMCIMG ---
EXAM: CR Chest, 1 View. CLINICAL HISTORY: CP COMPARISON: Radiograph dated January 10, 2025 FINDINGS: LUNGS: The lungs show no infiltrate or other acute finding. PLEURAL SPACES: No pleural effusion or pneumothorax. MEDIASTINUM: Cardiac size and mediastinal contours within normal limits. BONES: No acute osseous abnormality. IMPRESSION: No acute cardiopulmonary pathology is evident. /[place]
[2025-02-27 14:34] VITALS: BP 114/74; PULSE 84; RESP 18; TEMP 98.2; O2SAT 98
[2025-02-27] MEDS ORDERED: CEPH500B PO (14:50)
[2025-02-27] MEDS ORDERED: PANT40TA55 PO (14:50)
== END 2025-02-27 15:15 | disposition home or self-care (01) ==
LOC: EDH 12:32
DX: N39.0 Urinary tract infection, site not specified (principal); K21.9 Gastro-esophageal reflux disease without esophagitis; I25.10 Atherosclerotic heart disease of native coronary artery without angina pectoris; Z79.82 Long term (current) use of aspirin; Z79.84 Long term (current) use of oral hypoglycemic drugs; Z79.899 Other long term (current) drug therapy; Z90.710 Acquired absence of both cervix and uterus
CPT/HCPCS: 99285; 96365; 71045; 82550; 83735; 84484 ×2; 80048; 85025; 85730; 87086; 81001; 36415; 93005; J0696

== ENCOUNTER 2025-03-25 07:21 | Emergency (ER) | payer MEDICAID ==
[~2025-03-25] VITALS: Ht 149.9 cm; Wt 72.2 kg
[~2025-03-25 07:21] MED LIST changes: +CEPH500B PO; +PANT40TA55 PO
--- NOTE | 2025-03-25 07:45 | ERN ---
General Chief Complaint: Pelvic Pain Stated Complaint: LEFT PELVIC PAIN Time Seen by MD: 07:23 Source: patient History of Present Illness Initial Comments Patient is a 44-year-old female coming in complaining of pelvic pain. Patient states that the pain is increasing and she states that she was told at another hospitalist she has a an ovarian cyst. She has a more or uterus the ovarian cyst she believes it is in the left ovary. Allergies: Coded Allergies: No Known Drug Allergies (Verified Allergy, 05/20/13) Home Meds Active Scripts Pantoprazole Sodium (Protonix) 40 Mg Ectab, 1 TAB PO DAILY for 30 Days, #30 TAB 0 Refills Prov:SUSAN DAVIS MD 02/27/25 Cephalexin Monohydrate (Keflex) 500 Mg Cap, 1 CAP PO BID for 10 Days, #20 CAP 0 Refills Prov:SUSAN DAVIS MD 02/27/25 Ibuprofen (Ibuprofen 800 mg Tab) 800 Mg Tab, 800 MG PO Q8H PRN for fever or pain, #30 TAB 0 Refills Prov:BELL EPSTEIN NP 09/20/24 Nitroglycerin (Nitroglycerin) 0.4 Mg Tab.subl, 0.4 MG SL AD PRN for CHEST PAIN, #30 TAB.SL 1 Refill Prov:AMBER SIMMONS 07/19/24 Reported Medications Aspirin (Aspirin) 81 Mg Tab.chew, 1 TAB PO DAILY 08/06/24 Diltiazem HCl (Diltiazem 24Hr ER) 120 Mg Cap.er.24h, 1 CAP PO DAILY 08/06/24 Atorvastatin Calcium (Atorvastatin Calcium) 40 Mg Tablet, 1 TAB PO HS for 30 Days, #30 TAB 0 Refills 07/16/24 Pantoprazole Sodium (Protonix) 40 Mg Tablet.dr, 1 TAB PO DAILY for 30 Days, #30 TAB 0 Refills 07/16/24 Isosorbide Mononitrate (Isosorbide Mononitrate ER) 30 Mg Tab.er.24h, 1 TAB PO DAILY for 30 Days, #30 TAB 0 Refills 07/16/24 Dapagliflozin Propanediol (Farxiga) 5 Mg Tablet, 2 TAB PO DAILY for 30 Days, #30 TAB 0 Refills 07/16/24 Insulin Degludec (Tresiba) 100 Unit/Ml Vial, 30 UNITS SQ DAILY, VIAL 07/16/24 Insuln Asp Prt/Insulin Aspart (Novolog Mix 70-30 Flexpen Syrn) 100 Unit/Ml (70- 30) Insuln.pen, 45 UNITS SQ BIDMEALS, SYRINGE 07/16/24 Past Medical History Past Medical History: CAD, Diabetes-Type II, Heart Disease Medical History Other: 60 % OF UNKNOWN ARTERY OCCLUSION Past Surgical History: Hysterectomy Family History Family History: Negative Social History Social History: Negative Female( History) History: Not Applicable ROS Dictation CONSTITUTIONAL: No chills, no fever, no weakness, no diaphoresis, no malaise. HEAD/FACE: No signs of trauma. EENT: No eye pain, no blurred vision, no tearing, no double vision, no ear pain, no ear discharge, no nose pain, no nasal congestion, no throat pain, no throat swelling, no mouth pain. RESPIRATORY: No cough, no orthopnea, no SOB, no stridor, no wheezing. CARDIOVASCULAR: No chest pain, no edema, no palpitations, no syncope. GASTROINTESTINAL/ABDOMINAL: abdominal pain, no constipation, no diarrhea, no nausea, no vomiting. GENITOURINARY: No abnormal discharge, no dysuria, no frequent urination, no hematuria. No complaints of pain in the genitals. MUSCULOSKELETAL: No back pain, no gout, no joint pain, no joint swelling, no muscle pain, no muscle stiffness, no neck pain. INTEGUMENTARY: No change in color, no change in hair/nails, no dryness, no lesion, no lumps, no rash. NEUROLOGICAL/PSYCH: No anxiety, not depressed, no emotional problem, no headache, no numbness, no pre-existing deficit, no history of seizures, no tremors, no weakness. HEMATOLOGIC/LYMPHATIC: Not anemic, no history of blood clots, no apparent bleeding, no bruising, glands not swollen. All Systems Negative, Except as Noted. Physical Exam Physical Exam Dictation VITAL SIGNS: Reviewed. GENERAL APPEARANCE: Alert, oriented x3, no acute distress, obese. HEAD AND FACE: Non-traumatic. EYES: PERRL, pink conjunctivas, eyelid no trauma, anterior chamber clear. EARS: Pinnas intact and no signs of trauma or erythema. Ear canals clear and no discharge. TMs no erythema. NOSE: No discharge, no bleeding. OROPHARYNX: Mouth normal, teeth no caries, tongue pink. Pharynx clear, no erythema. Tonsils no exudates, no abscesses noted. Mucous membrane moist. NECK: Supple, non-tender, no thyromegaly, no masses, no JVD, no bruits. BREAST: Deferred. CHEST: No tenderness, no crepitus, no paradoxical movement, no retractions. LUNGS: Clear, well-ventilated, symmetric, no rales, no wheezing, no rhonchi, no stridor, good breath sounds bilaterally. HEART: Regular rate, regular rhythm, no murmur, no gallops. VASCULAR: No peripheral edema. ABDOMEN: Soft, positive bowel sounds, nondistended, no guarding, nontender, no rebound, no masses no hepatomegaly, no splenomegaly, no Nguyễn's sign, no hernias. RECTAL: Deferred. GENITAL: Deferred. NEUROLOGICAL: Normal speech, gross motor function intact, gross sensory function intact. MUSCULOSKELETAL: Neck nontender, full range of motion, back nontender, full range of motion. EXTREMITIES: Nontender, full range of motion. SKIN: Color pink, dry, no turgor, no rash, no lacerations, no abrasions, no contusions. LYMPHATICS: Deferred. Results Laboratory and Microbiology Lab and Micro Result Laboratory Tests Test 03/25/25 09:23 Urine Color COLORLESS (YELLOW) Urine Appearance CLEAR (CLEAR) Urine pH 6.0 (5.0-8.0) Urine Specific [place] 1.007 (1.001-1.031) Urine Protein NEGATIVE mg/dL (NEGATIVE) Urine Glucose (UA) >=1000 mg/dL (NEGATIVE) H Urine Ketones NEGATIVE mg/dL (NEGATIVE) Urine Occult Blood NEGATIVE (NEGATIVE) Urine Nitrate NEGATIVE (NEGATIVE) Urine Bilirubin NEGATIVE mg/dL (NEGATIVE) Urine Urobilinogen 0.2 mg/dL (0.2-1.0) Urine Leukocyte Esterase NEGATIVE Romi/uL Urine RBC None /HPF (0-1) Urine WBC None /HPF (0-1) Urine Squamous Epithelial Cells RARE /HPF (0-2) Urine Non-Squamous Epithelial Cells <1 /HPF (0-2) Urine Bacteria None /HPF (None Seen) Urine HCG, Qualitative NEGATIVE (NEGATIVE) Urine Opiates Screen NEGATIVE (NEGATIVE) Urine Barbiturates Screen NEGATIVE (NEGATIVE) Urine Phencyclidine Screen NEGATIVE (NEGATIVE) Urine Amphetamines Screen NEGATIVE (NEGATIVE) Urine Benzodiazepines Screen NEGATIVE (NEGATIVE) Urine Cocaine Screen NEGATIVE (NEGATIVE) Urine Marijuana (THC) Screen NEGATIVE (NEGATIVE) MDM MDM: Differential diagnosis: Ovarian cyst, pelvic pain, Rationale: Tests considered and ordered secondary to shared decision making include: Previous outside records reviewed: Old ER visits. Risk of complication and/or morbidity or mortality of patient management: None Medications-Per medication reconciliation Need for hospitalization: Patient does not meet criteria for hospitalization. Need for emergency major/minor surgery: No Patient is a 44-year-old female coming in complaining of pelvic pain. Patient was diagnosed with an ovarian cyst at another hospital in his coming in due to ongoing pain. On ultrasound a 3 cm ovarian cyst was found. Patient will be discharged in stable condition with a diagnosis of left ovarian cyst. Patient was advised appropriate follow up with Gynecology in order to treat cyst. ED Course Orders Procedure Category Date Status Time Urinalysis LAB 03/25/25 Complete W/Microscopic 07:33 ,Urine Test LAB 03/25/25 Complete 07:33 Us Pelvic Non-Ob US 03/25/25 Resulted Limited 07:33 Drug Screen Urine LAB 03/25/25 Complete 07:33 Vital Signs Date Time Temp Pulse Resp B/P (MAP) Pulse Ox O2 Delivery O2 Flow Rate FiO2 03/25/25 08:54 98.2 96 16 127/79 98 Room Air* 0 21 03/25/25 07:23 97.9 92 16 132/82 99 Room Air* 0 21 03/25/25 07:23 97.9 92 16 132/82 99 Room Air 0 DX & DISP Disposition: Discharge Departure Impression: Primary Impression: Left ovarian cyst Condition: Stable Scripts Naproxen (Naproxen) 375 Mg Tablet. 375 MG PO BID for 7 Days, #14 TAB Prov: SUSAN DAVIS MD 03/25/25 Additional Instructions: FOLLOW-UP WITH PRIMARY CARE PROVIDER IN 1 TO 2 DAYS. TAKE MEDICATIONS DIRECTED HERE IN THE EMERGENCY ROOM. OKAY TO CONTINUE HOME MEDICATIONS UNLESS OTHERWISE DISCUSSED DURING YOUR VISIT IN THE EMERGENCY ROOM TODAY. RETURN TO YOUR NEAREST EMERGENCY ROOM IF SYMPTOMS WORSEN OR IF THERE IS NO IMPROVEMENT. CALL 911 IF YOU NEED IMMEDIATE ASSISTANCE. TAKE TYLENOL [id number] NEEDED AND IF NO CONTRAINDICATIONS ARE PRESENT. INCREASE ORAL HYDRATION. A WOUND CULTURE OR URINE CULTURE WAS ORDERED HERE IN THE EMERGENCY ROOM DEPARTMENT PLEASE FOLLOW-UP WITH PRIMARY CARE PROVIDER AND ADVISE THEM TO GET REPORTS FROM OUR FACILITY. IF YOU HAD ANY MITCH WRAP/SPLINTS THAT WERE APPLIED HERE, PLEASE DO NOT REMOVE THEM UNTIL YOU SEE YOUR PRIMARY CARE OR SPECIALTY. Referrals: Referrals: JAYME GOMES MD (PCP) Time of Disposition: 09:45 SUSAN DAVIS MD Mar 25, 2025 07:45
[2025-03-25 08:54] VITALS: BP 127/79; PULSE 96; RESP 16; TEMP 98.3; O2SAT 98
[2025-03-25 09:36] LABS: AMPHET/METH SCREEN,URINE NEGATIVE (NEGATIVE); BARBITURATE SCREEN, URINE NEGATIVE (NEGATIVE); CANNABINOID SCREEN,URINE NEGATIVE (NEGATIVE); COCAINE SCREEN,URINE NEGATIVE (NEGATIVE)
[2025-03-25 09:38] LABS: HCG,QUALITATIVE URINE NEGATIVE (NEGATIVE)
--- NOTE | 2025-03-25 09:38 | HMCIMG ---
EXAMINATION: COMPLETE TRANSABDOMINAL ULTRASOUND OF PELVIS. CLINICAL HISTORY: Pelvic pain. COMPARISON: USG pelvis dated 09/06/2019. TECHNIQUE: Multiple real-time grayscale images of the pelvis were obtained with transabdominal transducer. In addition, color Doppler is medically necessary to perform to assess for vascularity and blood flow. FINDINGS: Post hysterectomy status. Cervix obscured. The right ovary is obscured by overlying bowel gas. The left ovary is normal in caliber and measures 2.4 x 1.1 x 2.3 cm. Well defined anechoic cyst measuring 2.5 x 3.1 x 2.9 cm in craniocaudal, venessa-posterior and transverse dimensions with no evidence of internal septations. Normal left ovarian blood flow is documented. There is no free fluid in the cul-de-sac. IMPRESSION: Post hysterectomy status. Left ovarian simple cyst. /[place]
[2025-03-25 09:39] LABS: APPEARANCE,URINE CLEAR (CLEAR); GLUCOSE, URINE (UA) >=1000 mg/dL (NEGATIVE); LEUKOCYTE ESTERASE ,URINE NEGATIVE Leu/uL (NEGATIVE); NITRATE,URINE NEGATIVE (NEGATIVE); NON-SQUAMOUS EPITHELIAL CELL <1 /HPF (0-2); OCCULT BLOOD,URINE NEGATIVE (NEGATIVE); SQUAMOUS EPITHELIAL CELL,UR RARE /HPF (0-2)
[2025-03-25] MEDS ORDERED: NAPR-1505 PO (09:46)
== END 2025-03-25 10:15 | disposition home or self-care (01) ==
LOC: EDH 07:21
DX: N83.202 Unspecified ovarian cyst, left side (principal); I25.10 Atherosclerotic heart disease of native coronary artery without angina pectoris; E11.9 Type 2 diabetes mellitus without complications; Z79.4 Long term (current) use of insulin; Z79.82 Long term (current) use of aspirin; Z79.84 Long term (current) use of oral hypoglycemic drugs; Z79.899 Other long term (current) drug therapy; Z90.710 Acquired absence of both cervix and uterus
CPT/HCPCS: 99285; 96374; 76857; 80305; 81025; 81001; J1885; 96372

== ENCOUNTER 2025-04-08 19:30 | Observation (INO) | payer MEDICAID ==
[~2025-04-08] VITALS: Ht 149.9 cm; Wt 73.4 kg
[~2025-04-08 19:30] MED LIST changes: +NAPR-1505 PO
[2025-04-08 20:04] LABS: HCG,QUALITATIVE URINE NEGATIVE (NEGATIVE)
[2025-04-08 20:06] LABS: APPEARANCE,URINE CLEAR (CLEAR); GLUCOSE, URINE (UA) >=1000 mg/dL (NEGATIVE); LEUKOCYTE ESTERASE ,URINE NEGATIVE Leu/uL (NEGATIVE); NITRATE,URINE NEGATIVE (NEGATIVE); OCCULT BLOOD,URINE NEGATIVE (NEGATIVE); SQUAMOUS EPITHELIAL CELL,UR FEW /HPF (0-2)
[2025-04-08 20:12] LABS: IMMATURE GRANULOCYTE ABSOLUTE 0.04 K/uL (0-1); NUCLEATED RED BLOOD CELLS 0.0 % (0.0-0.19); PLATELET COUNT (AUTO) 332 K/uL (130-400); RED BLOOD CELL COUNT(AUTO) 5.13 MIL/uL (4.00-5.50); RED CELL DISTRIBUTION WIDTH 14.6 % (11.0-15.5); WHITE BLOOD COUNT (AUTO) 10.7 K/uL (4.8-10.8)
[2025-04-08 20:22] LABS: CREATININE 0.9 mg/dL (0.5-1.0); GLOMERULAR FILTR. RATE CALC 81.0 mL/min (>90); GLUCOSE,RANDOM 228.0 mg/dL (70-105); SODIUM SERUM 139.0 mmol/L (136-145); UREA NITROGEN, BLOOD 13.0 mg/dL (7-18)
--- NOTE | 2025-04-08 21:36 | HMCIMG ---
EXAM: US Pelvis, Complete. CLINICAL HISTORY: Patient presents with left pelvic pain. TECHNIQUE: Transvaginal and transabdominal pelvic ultrasound (complete) with image documentation. COMPARISON: CT dated September 20, 2024 and US dated March 25, 2025. FINDINGS: UTERUS/CERVIX: Uterus surgically removed. ENDOMETRIUM: Not applicable post-hysterectomy. RIGHT OVARY: Not identified. LEFT OVARY: Measures 2.6 x 2.4 x 3.8 cm. Normal flow present. Multiple complex cysts measuring 1.6 x 1.2 cm, 0.9 x 0.9 cm, 0.9 cm, and 1.6 x 1.2 cm. FREE FLUID: No free fluid. IMPRESSION: Status post hysterectomy. Nonvisualization of the right ovary. Complex cysts in the left ovary measuring up to 1.6 cm, increased in number since the prior US examination. /[place]
[2025-04-09] VITALS (7 sets, daily range): BP systolic 105–127; BP diastolic 64–76; PULSE 70–85; RESP 18–20; TEMP 97.9–98.1; O2SAT 95
--- NOTE | 2025-04-09 02:00 | ERN ---
General Chief Complaint: Abdominal Pain Stated Complaint: C/O LLQ PAIN; STATES HAS CYST TO LEFT OVARY Time Seen by MD: 19:49 Time Seen by Midlevel: 19:49 Source: patient History of Present Illness Initial Comments 44-year-old female presents to the emergency department due to left lower abdominal/pelvic pain. Patient reports she had a partial hysterectomy performed multiple years ago due to endometriosis, and recently had a full hysterectomy done by Dr. Dudley due to constant ovarian cysts causing the pain. Patient was seen here in the emergency department due weeks ago and diagnosed with a left ovarian cyst. Patient has been taking naproxen for the pain without any relief. Reports nausea but denies any vomiting, diarrhea, fever, dysuria or further associated symptoms. PMHx DM, CAD Allergies: Coded Allergies: No Known Drug Allergies (Verified Allergy, 05/20/13) Home Meds Active Scripts Naproxen (Naproxen) 375 Mg Tablet.dr, 375 MG PO BID for 7 Days, #14 TAB Prov:SUSAN DAVIS MD 03/25/25 Pantoprazole Sodium (Protonix) 40 Mg Ectab, 1 TAB PO DAILY for 30 Days, #30 TAB 0 Refills Prov:SUSAN DAVIS MD 02/27/25 Cephalexin Monohydrate (Keflex) 500 Mg Cap, 1 CAP PO BID for 10 Days, #20 CAP 0 Refills Prov:SUSAN DAVIS MD 02/27/25 Ibuprofen (Ibuprofen 800 mg Tab) 800 Mg Tab, 800 MG PO Q8H PRN for fever or pain, #30 TAB 0 Refills Prov:BELL EPSTEIN NP 09/20/24 Nitroglycerin (Nitroglycerin) 0.4 Mg Tab.subl, 0.4 MG SL AD PRN for CHEST PAIN, #30 TAB.SL 1 Refill Prov:AMBER SIMMONS 07/19/24 Reported Medications Aspirin (Aspirin) 81 Mg Tab.chew, 1 TAB PO DAILY 08/06/24 Diltiazem HCl (Diltiazem 24Hr ER) 120 Mg Cap.er.24h, 1 CAP PO DAILY 08/06/24 Atorvastatin Calcium (Atorvastatin Calcium) 40 Mg Tablet, 1 TAB PO HS for 30 Days, #30 TAB 0 Refills 07/16/24 Pantoprazole Sodium (Protonix) 40 Mg Tablet.dr, 1 TAB PO DAILY for 30 Days, #30 TAB 0 Refills 07/16/24 Isosorbide Mononitrate (Isosorbide Mononitrate ER) 30 Mg Tab.er.24h, 1 TAB PO DAILY for 30 Days, #30 TAB 0 Refills 07/16/24 Dapagliflozin Propanediol (Farxiga) 5 Mg Tablet, 2 TAB PO DAILY for 30 Days, #30 TAB 0 Refills 07/16/24 Insulin Degludec (Tresiba) 100 Unit/Ml Vial, 30 UNITS SQ DAILY, VIAL 07/16/24 Insuln Asp Prt/Insulin Aspart (Novolog Mix 70-30 Flexpen Syrn) 100 Unit/Ml (70- 30) Insuln.pen, 45 UNITS SQ BIDMEALS, SYRINGE 07/16/24 Past Medical History Past Medical History: CAD, Diabetes-Type II Medical History Other: 60 % OF UNKNOWN ARTERY OCCLUSION Past Surgical History: Other Surgical History Other: PARTIAL HYSTERECTOMY Family History Family History: Negative Social History Social History: Negative Female( History) History: Not Applicable ROS Dictation Constitutional: Negative for fever,chills, and weight loss Eyes: Negative for injury, pain,redness, and discharge ENT: Negative for injury,pain or swelling Cardiovascular: Negative for chest pain, palpitations, and edema Respiratory: Negative for shortness of breath, cough, and wheezing, Abdomen/GI: Positive left lower/pelvic pain, nausea. Negative for vomiting, diarrhea, and constipation Back: Negative for injury and pain : Negative for painful urination, bleeding or discharge MS/Extremity: Negative for injury and deformity Skin: Negative for rash, and discoloration Neuro: Negative for headache, weakness, numbness, tingling, and seizure Psych: Negative for suicide ideation, homicidal ideation, and hallucinations Physical Exam Physical Exam Dictation General: awake, alert, no acute distress Head/Face: Normocephalic, atraumatic Eyes: PERRL, EOMI, normal conjunctiva ENT: oral cavity clear, oral mucosa moist Neck: Supple, normal range of motion Cardiovascular: RRR, normal S1/S2 Respiratory: CTAB, no respiratory distress Abdomen: Soft, tender to palpation left lower quadrant/suprapubic, non- distended, no guarding or rebound. Skin: Warm, dry, normal turgor, no rash MS/Extremity: Pulses equal, no cyanosis, neurovascular intact, FROM Neuro: COAx4, GCS 15, strength 5/5, CN 2-12 intact, normal cerebellar exam, normal gait Psych: Normal behavior, mood, and affect normal Results Laboratory and Microbiology Lab and Micro Result Laboratory Tests Test 04/08/25 19:53 04/08/25 20:06 Urine Color COLORLESS (YELLOW) Urine Appearance CLEAR (CLEAR) Urine pH 6.0 (5.0-8.0) Urine Specific [place] 1.028 (1.001-1.031) Urine Protein NEGATIVE mg/dL (NEGATIVE) Urine Glucose (UA) >=1000 mg/dL (NEGATIVE) H Urine Ketones NEGATIVE mg/dL (NEGATIVE) Urine Occult Blood NEGATIVE (NEGATIVE) Urine Nitrate NEGATIVE (NEGATIVE) Urine Bilirubin NEGATIVE mg/dL (NEGATIVE) Urine Urobilinogen 0.2 mg/dL (0.2-1.0) Urine Leukocyte Esterase NEGATIVE Romi/uL Urine RBC 0-1 /HPF (0-1) Urine WBC 0-1 /HPF (0-1) Urine Squamous Epithelial Cells FEW /HPF (0-2) Urine Bacteria None /HPF (None Seen) Urine HCG, Qualitative NEGATIVE (NEGATIVE) White Blood Count 10.7 K/uL (4.8-10.8) Red Blood Count 5.13 MIL/uL (4.00-5.50) Hemoglobin 13.5 g/dL (12.0-16.0) Hematocrit 41.7 % (36-48) Mean Corpuscular Volume 81.3 fL (79-99) Mean Corpuscular Hemoglobin 26.3 pg (27.0-33.0) L Mean Corpuscular Hemoglobin Concent 32.4 g/dL (32.0-36.0) Red Cell Distribution Width 14.6 % (11.0-15.5) Platelet Count 332 K/uL (130-400) Mean Platelet Volume 10.2 fL (7.5-10.5) Immature Granulocyte % (Auto) 0.4 % (0-1) Neutrophils (%) (Auto) 66.3 % (40.0-77.0) Lymphocytes (%) (Auto) 25.9 % (21.0-51.0) Monocytes (%) (Auto) 5.7 % (3.0-13.0) Eosinophils (%) (Auto) 1.1 % (0.0-8.0) Basophils (%) (Auto) 0.6 % (0.0-5.0) Neutrophils # (Auto) 7.1 K/uL (1.8-7.7) Lymphocytes # (Auto) 2.8 K/uL (1.0-4.8) Monocytes # (Auto) 0.6 K/uL (0.1-1.0) Eosinophils # (Auto) 0.12 K/uL (0.00-0.70) Basophils # (Auto) 0.06 K/uL (0.00-0.20) Absolute Immature Granulocyte (auto 0.04 K/uL (0-1) Nucleated Red Blood Cells 0.0 % (0.0-0.19) Sodium Level 139 mmol/L (136-145) Potassium Level 4.1 mmol/L (3.5-5.1) Chloride Level 102 mmol/L (101-111) Carbon Dioxide Level 31 mmol/L (21-32) Blood Urea Nitrogen 13 mg/dL (7-18) Creatinine 0.9 mg/dL (0.5-1.0) Glomerular Filtration Rate Calc 81 mL/min (>90) Random Glucose 228 mg/dL (70-105) H Total Calcium 9.1 mg/dL (8.5-10.1) Labs Reviewed?: Yes EKG/XRAY/US/CT/MRI Ultrasound Comment REASON: Left pelvis pain ORDERING PHYSICIAN: LAURA ERICKSON PROCEDURE: PELVCOMP - US PELVIC NON-OB COMP EXAM: US Pelvis, Complete. CLINICAL HISTORY: Patient presents with left pelvic pain. TECHNIQUE: Transvaginal and transabdominal pelvic ultrasound (complete) with image documentation. COMPARISON: CT dated September 20, 2024 and US dated March 25, 2025. FINDINGS: UTERUS/CERVIX: Uterus surgically removed. ENDOMETRIUM: Not applicable post-hysterectomy. RIGHT OVARY: Not identified. LEFT OVARY: Measures 2.6 x 2.4 x 3.8 cm. Normal flow present. Multiple complex cysts measuring 1.6 x 1.2 cm, 0.9 x 0.9 cm, 0.9 cm, and 1.6 x 1.2 cm. FREE FLUID: No free fluid. IMPRESSION: Status post hysterectomy. Nonvisualization of the right ovary. Complex cysts in the left ovary measuring up to 1.6 cm, increased in number since the prior US examination. /[place] DICTATED BY: WILL LUCIANO Jr., MD DATE: 04/08/252233 [facility] MDM: Differential diagnosis: Ovarian cyst, ovarian torsion, UTI Rationale: 44-year-old female presents to the emergency department due to left lower abdominal/pelvic pain. Patient reports she had a partial hysterectomy performed multiple years ago due to endometriosis, and recently had a full hysterectomy done by Dr. Dudley due to constant ovarian cysts causing the pain. Patient was seen here in the emergency department due weeks ago and diagnosed with a left ovarian cyst. Patient has been taking naproxen for the pain without any relief. Reports nausea but denies any vomiting, diarrhea, fever, dysuria or further associated symptoms. PMHx DM, CAD Per physical examination patient appears uncomfortable, lower quadrant/pelvic tenderness. Labs obtained CBC and chemistry are nonspecific. UA negative for urinary tract infection. Pelvic ultrasound obtained indicating complex cyst in the left ovary measuring 1.6 cm increased in numbers since prior ultrasound performed two weeks ago. Patient received ketorolac without any pain improvement. Morphine was then administered and on re-examination patient verbalized pain continues, and is worsening to the point she is having difficulty to walk to the pain. Dilaudid was then given. The patient was educated on findings, diagnosis and decision for admission for intractable pain. Patient verbalized understanding and agrees with admission. Case discussed with Dr. Connors who accepts admission. Previous outside records reviewed: Old ER visits. Risk of complication and/or morbidity or mortality of patient management: None Medications-Per medication reconciliation Need for hospitalization: Patient does meet criteria for hospitalization. Need for emergency major/minor surgery: No There are no social concerns with this patient. Prescription drug management Prescriptions will include symptomatic care Patient's prior external medical records from other ER visits were reviewed by me as indicated. Prior testing and results from previous visits were reviewed. Prior tests were taken into account with medical decision making and resource utilization, independent historian/historians were used to obtain complete medical history. I independently interpreted the test that were performed, results were reviewed by me and considered findings on radiology if ordered. Medical management and examination interpretation discussions were had by me with other qualified healthcare professionals as indicated for the patient's care. ED Course Orders Procedure Category Date Status Time Cbc With Differential LAB 8/11/25 Complete 19:49 Basic Metabolic Panel LAB 04/08/25 Complete 19:49 Urinalysis LAB 04/08/25 Complete W/Microscopic 19:49 ,Urine Test LAB 04/08/25 Complete 19:49 Us Pelvic Non-Ob Comp US 04/08/25 Resulted 20:35 Ketorolac PHA 04/08/25 Complete Tromethamine 15mg/Ml 21:00 Morphine 4mg Syg PHA 04/08/25 Complete (Morphine 4mg Syg) 23:30 Ondansetron Odt 4mg PHA 04/09/25 Complete Tab (Zofran 4mg Odt) 00:00 Hydromorphone 0.5mg PHA 04/09/25 Complete Syg (Dilaudid 0.5mg 01:00 Hydromorphone 0.5mg PHA 04/09/25 Logged Syg (Dilaudid 0.5mg 01:30 Ondansetron 4mg Inj PHA 04/09/25 Logged (Zofran 4mg Inj) 01:30 Dextrose 5 %-0.45 % PHA 04/09/25 Logged Nacl (D5 1/2ns) 01:30 Admit Orders ADM 04/09/25 Transmitted 01:29 Cbc Without LAB 04/09/25 Logged Differential 06:00 Comprehensive LAB 04/09/25 Logged Metabolic Panel 06:00 Current Medications Medications (Trade) Dose Ordered Sig/[place] Route PRN Reason Start Time Stop Time Status Last Admin Dose Admin Dextrose/Sodium Chloride 1,000 ml @ 50 mls/hr Q20H IV 04/09/25 01:30 05/09/25 01:29 UNV Hydromorphone HCl (DiLAUDid 0.5MG INJ) 0.5 mg ONCE ONCE IVP 04/09/25 01:00 04/09/25 01:01 DC 04/09/25 00:55 Hydromorphone HCl (DiLAUDid 0.5MG INJ) 0.5 mg Q6H PRN IVP SEVERE PAIN (7-10) 04/09/25 01:30 04/14/25 01:29 UNV Ketorolac Tromethamine (toRADol) 15 mg ONCE ONCE IM 04/08/25 21:00 04/08/25 21:01 DC 04/08/25 22:39 Morphine Sulfate (morPHINE 4MG SYG) 4 mg ONCE ONCE IM 04/08/25 23:30 04/08/25 23:31 DC 04/08/25 23:29 Ondansetron HCl (zoFRAN 4MG INJ) 4 mg Q6H PRN IVP NAUSEA/VOMITING 04/09/25 01:30 05/09/25 01:29 UNV Ondansetron HCl (zoFRAN 4MG ODT) 4 mg ONCE ONCE SL 04/09/25 00:00 04/09/25 00:01 DC 04/09/25 00:25 Vital Signs Date Time Temp Pulse Resp B/P (MAP) Pulse Ox O2 Delivery O2 Flow Rate FiO2 04/09/25 00:50 98.1 70 18 143/82 98 Room Air* 0 21 04/09/25 00:15 98.1 87 18 140/81 96 Room Air* 0 21 04/08/25 22:46 100 18 116/65 98 Room Air* 0 21 04/08/25 19:32 98.1 101 20 116/74 97 Room Air DX & DISP Disposition: Inpatient Departure Impression: Primary Impression: Left ovarian cyst Additional Impression: Intractable pain Condition: Stable Referrals: PADMINI CONNORS MD (PCP) I performed the substantive portion of the visit. I have reviewed and personally made and approve the management plan that is documented in the notes by myself or the TAURUS. I acknowledge full responsibility for the patient's management plan. LAURA ERICKSON Apr 09, 2025 02:00
--- NOTE | 2025-04-09 03:20 | NUR ---
REPORT GIVEN TO NURSE FINK, ALL QUESTIONS ANSWERED AT THIS TIME. NURSE EXPECTING PT ARRIVAL TO THE UNIT
[2025-04-09] MEDS: DEXTROSE 5 %-0.45 % NACL 1,000 ML IV SCH (03:33)
[2025-04-09 05:51] LABS: NUCLEATED RED BLOOD CELLS 0.0 % (0.0-0.19); PLATELET COUNT (AUTO) 283.0 K/uL (130-400); RED BLOOD CELL COUNT(AUTO) 5.19 MIL/uL (4.00-5.50); RED CELL DISTRIBUTION WIDTH 14.6 % (11.0-15.5); WHITE BLOOD COUNT (AUTO) 9.2 K/uL (4.8-10.8)
[2025-04-09 06:07] LABS: ASPARTATE AMINOTRANSFERASE 10.0 U/L (10-37); CREATININE 0.6 mg/dL (0.5-1.0); GLOMERULAR FILTR. RATE CALC 113.0 mL/min (>90); GLUCOSE,RANDOM 154.0 mg/dL (70-105); SODIUM SERUM 140.0 mmol/L (136-145); TOTAL PROTEIN, SERUM 7.3 g/dL (6.0-8.3); UREA NITROGEN, BLOOD 14.0 mg/dL (7-18)
[2025-04-09] MEDS ORDERED: ACET-2079 PO (06:49)
[2025-04-09] MEDS ORDERED: ATOR40TA71 PO (06:49)
[2025-04-09] MEDS ORDERED: PANT40TA54 PO (06:49)
[2025-04-09] MEDS ORDERED: DAPA10TA PO (06:49)
[2025-04-09] MEDS ORDERED: INSU100I49 SQ (06:49)
[2025-04-09] MEDS ORDERED: NAPR-1192 PO (06:49)
[2025-04-09] MEDS ORDERED: INSU100I72 SQ (06:49)
[2025-04-09] MEDS ORDERED: ISOS30TA92 PO (06:49)
[2025-04-09] MEDS ORDERED: NITR0.4T50 SL (06:49)
[2025-04-09] MEDS ORDERED: ASPI-1443 PO (06:49)
--- NOTE | 2025-04-09 09:17 | NUR ---
DCP:HOME Pt currently lives with 2 dgts in her home. Pt does receive $375 in [employer] benefits. Pt does not have any DME, home health, or provider services. Pt states that she is able to complete ADLs independently. PCP is Dr. Harpal Lopez [facility]. At [place] pt will want to go home and family can assist with transportation. Addendum: 04/09/25 at 0919 by JOSELIN GUZMAN SS Amended: Links added.
--- NOTE | 2025-04-10 03:06 | HP ---
HISTORY OF PRESENT ILLNESS: The patient came to the Emergency Room complaining of left lower abdominal pain. The patient has had partial hysterectomy several years ago and recently had surgery with FORGING ENGINEER, apparently with bilateral oophorectomy. The patient was recently seen in the Emergency Room and was diagnosed with left ovarian cyst. ALLERGIES: None. MEDICATIONS: Naproxen, Protonix, cephalexin, aspirin, diltiazem, atorvastatin, Farxiga, Tresiba, and NovoLog. PAST MEDICAL HISTORY: Type 2 diabetes, hypertension, dyslipidemia, gastritis. REVIEW OF SYSTEMS: The patient denies any fever, chills, seizures, loss of consciousness. No chest pain, palpitations. No cough, wheezing, rhonchi. No nausea, vomiting, diarrhea. No dysuria, urgency, or frequency. No rashes, petechiae, or ecchymoses. No hallucinations or delusions. No suicidal ideation. PHYSICAL EXAMINATION: GENERAL: She is currently awake, alert, oriented in person, time and place, in distress due to pain. HEENT: Normocephalic, atraumatic. Ethan and moist oral mucosa. NECK: Supple. LUNGS: Clear to auscultation. HEART: S1, S2 are distant. ABDOMEN: Prominent, soft, mild tenderness to deep palpation on the left lower quadrant. No rebound. EXTREMITIES: No clubbing, cyanosis. No edema. LABORATORY DATA: WBC count 10.7, hemoglobin 13.5, platelets 332, sodium 139, potassium 4.5, BUN 13, creatinine 0.9, calcium 9.1. IMAGING STUDIES: Ultrasound of the pelvis complete show left ovary with multiple complex cysts. No free fluid. Status post hysterectomy. ASSESSMENT AND PLAN: * Abdominal pain, intractable, resistant to NSAIDs. The patient received morphine and Dilaudid in the Emergency Room with partial improvement and I was called to assume care. There is no FORGING ENGINEER in staff at this hospital. * Plan will be to have controlled pain and refer her to an FORGING ENGINEER as an outpatient. There is no evidence of any surgical intervention needed at this time. She will be admitted for observation and plan to discharge when pain is controlled. TID: [id number] RECEIPT: [id number]
[2025-04-10 03:28] VITALS: BP 100/61; PULSE 75; RESP 18; TEMP 97.9
[2025-04-10 04:31] LABS: NUCLEATED RED BLOOD CELLS 0.0 % (0.0-0.19); PLATELET COUNT (AUTO) 295.0 K/uL (130-400); RED BLOOD CELL COUNT(AUTO) 4.76 MIL/uL (4.00-5.50); RED CELL DISTRIBUTION WIDTH 14.6 % (11.0-15.5); WHITE BLOOD COUNT (AUTO) 10.6 K/uL (4.8-10.8)
[2025-04-10 08:00] VITALS: BP 147/78; PULSE 78; RESP 18; TEMP 98; O2SAT 97
[2025-04-10 11:57] VITALS: BP 128/81; PULSE 85; RESP 18; TEMP 98.3
--- NOTE | 2025-04-10 13:30 | NUR ---
DISCHARGE DISCHARGE ORDERS FOR PATIENT TO BE DISCHARGED HOME OBTAINED. DISCHARGE INSTRUCTIONS AND DOCUMENTATION GIVEN TO PATIENT AT BEDSIDE. VOICED UNDERSTANDING. RX SENT TO PHARMACY OF CHOICE BY DR. CONNORS'S OFFICE. PATIENT NOTIFIED AND VOICED UNDERSTANDING. IV DISCONTINUED, CATHETER INTACT, NO S/S OF INFECTION NOTED TO AREA. PATIENT TOLERATED WELL. BANDS REMOVED. PATIENT PENDING TRANSPORTATION.
--- NOTE | 2025-04-10 13:59 | NUR ---
DISCHARGE PATIENT LEFT VIA WHEELCHAIR, NO S/S OF DISTRESS NOTED.
== END 2025-04-10 13:55 | disposition home or self-care (01) ==
LOC: EDH 19:30 → INTOOBSV 19:31 → EDHIP 19:31 → 3AH 04-09 03:20
PROVIDERS: ADMIT Internal Medicine; ATTEND Internal Medicine
DX: N83.202 Unspecified ovarian cyst, left side (principal); N80.9 Endometriosis, unspecified; E11.9 Type 2 diabetes mellitus without complications; E78.5 Hyperlipidemia, unspecified; I25.10 Atherosclerotic heart disease of native coronary artery without angina pectoris; R10.2 Pelvic and perineal pain; I10 Essential (primary) hypertension; R11.0 Nausea; Z79.899 Other long term (current) drug therapy
CPT/HCPCS: 99285; 80048; 85025; 81001; 81025; 36415 ×3; 76856; 96372 ×3; 96374; 96376 ×2; 96361 ×4; 96375; 80053; 85027 ×2; 82948 ×6; J2270; J1885 ×5; G0378 ×37; J1171 ×4; J7042; J2405 ×5; J1815 ×3

== ENCOUNTER → 2025-05-15 | Outpatient (CLI) | payer MEDICAID ==
[~2025-05-15] MED LIST changes: +ACET-2079 PO; -ASPI-1197 PO; +ASPI-1443 PO; -CEPH500B PO; +DAPA10TA PO; -DAPA5TAB PO; -DILT-36 PO; -IBUP-2077 PO; +INSU100I49 SQ; +INSU100I72 SQ; -INSU100V37 SQ; -INSU3INS5 SQ; +NAPR-1192 PO; -NAPR-1505 PO; -PANT40TA PO; +PANT40TA54 PO; -PANT40TA55 PO
--- NOTE | 2025-05-15 10:51 | HMCIMG ---
DIGITAL lateral DIAGNOSTIC MAMMOGRAM Technique: The digital mammographic examination of both breasts in craniocaudal, mediolateral oblique views along with CAD was obtained. Compression view of both breasts were also obtained. History: This is a 44 years year-old female 4, para4 Ab0 . Patient has no family history of breast cancer. Patient complaining of severe mastodynia Reference:Prior mammogram from 10/05/2022 is available. Breast composition: Breast composition C: The breasts are heterogeneously dense, which may obscure small masses. Finding: The digital mammographic examination of both breasts in craniocaudal and mediolateral oblique view along with CAD demonstrates moderately heterogeneously dense.. There is no evidence of any dendritic mass, cluster microcalcification or architectural distortion. The retromammary fat appears to be normal. IMPRESSION: Due to moderately heterogeneously dense breasts with severe mastodynia as noted also by the cath lab radiological technologist I would recommend a bilateral breast sonogram.. FINAL ASSESSMENT: ACR: BI-RAD -0. Incomplete: need additional imaging evaluation. Management: Recall for additional imaging and/or comparison with prior examination(s). Likelihood of Cancer: N/A NOTE: IF A WORK-UP OF THIS PATIENT LEADS TO A BIOPSY, PLEASE FORWARD A COPY OF THE PATHOLOGY REPORT TO OUR OFFICE REQUIRED BY [employer] MAY 29, 1994. A NEGATIVE MAMMOGRAM SHOULD NOT PRECLUDE BIOPSY OF A CLINICALLY PALPABLE SUSPICIOUS MASS, 10% OF BREAST CANCERS ARE MAMMOGRAPHICALLY OCCULT. THIS MAMMOGRAPHY FACILITY IS FULLY ACCREDITED BY THE FOOD AND DRUG ADMINISTRATION (FDA). THANK YOU FOR THIS REFERRAL.
== END | disposition home or self-care (01) ==
LOC: RAH 09:38
PROVIDERS: ATTEND Internal Medicine
DX: N64.4 Mastodynia (principal); R92.333 Mammographic heterogeneous density, bilateral breasts
CPT/HCPCS: 77066

== ENCOUNTER → 2025-06-05 | Outpatient (CLI) | payer MEDICAID ==
--- NOTE | 2025-06-06 11:39 | HMCIMG ---
BILATERAL BREAST ULTRASOUND: Clinical History: Dense breasts for follow-up for prior mammogram from 05/15/2025. Finding: Real-time examination of the both breasts demonstrates heterogeneous echotexture throughout both the breasts without evidence of focal solid or cystic masses. Both axillary has benign-appearing lymph node the left measures 1.1 x 0.4 x 1.0 cm. The right measures 0.7 x 0.7 x 1.2 cm. IMPRESSION: Dense breasts with no solid hypoechoic lesion seen. I would recommend annual mammography with tomography with bilateral breast sonogram. FINAL ASSESSMENT: ACR: BI-RAD- 2. Benign: Also a negative assessment; finding(s) benign abnormalities. Management: Routine mammography screening. Likelihood of Cancer: Essentially 0% likelihood of malignancy.
== END | disposition home or self-care (01) ==
LOC: RAH 14:19
PROVIDERS: ATTEND Internal Medicine
DX: R92.333 Mammographic heterogeneous density, bilateral breasts (principal)